=== PATIENT | female | born 1980 | race Caucasian/White ===

== ENCOUNTER 2018-07-12 15:35 | Observation (INO) | payer OTHER ==
[2018-07-12] MEDS ORDERED: ASPIRIN 325 MG TAB ONE (16:54)
[2018-07-12 17:24] LABS: Protime INR 1.05
[2018-07-12 17:33] LABS: Absolute Lymphocytes (CBC) 2.2 K/uL (0.7-4.9); Absolute Monocytes 0.4 K/uL (0.1-1.3); Absolute Neutrophil 4.4 K/uL (1.8-8.0); Basophils % 0.7 % (0-1.3); Eosinophils % 0.8 % (0-4.4); Hematocrit 46.8 % (36.0-45.0); Lymphocytes % 30.7 % (15.3-44.8); Monocytes % 6.3 % (3.3-12.3)
[2018-07-12 17:48] LABS: ALT/SGPT 20 U/L (12-78); AST/SGOT 24 U/L (15-37); Albumin 4.3 g/dL (3.4-5.0); Alkaline Phosphatase 52 U/L (45-117); BUN Blood Urea Nitrogen 9 mg/dL (7-18); Bicarbonate 27 mmol/L (21-32); Bilirubin Direct 0.2 mg/dL (0-0.2); Bilirubin Total 0.9 mg/dL (0.2-1.0); Glucose Level 71 mg/dL (74-106); Magnesium 2.2 mg/dL (1.8-2.4); NT PRO-BNP 34 pg/mL (<125); Potassium 4.1 mmol/L (3.5-5.1); Protein, Total 7.9 g/dL (6.4-8.2); Sodium Level 139 mmol/L (136-145); Troponin (Emerg Dept Use Only) < 0.02 ng/mL (0.0-0.045)
--- NOTE | 2018-07-12 18:06 | RAD REPORT ---
EXAM DESCRIPTION: RAD - Chest Single View - 07/12/2018 5:44 pm CLINICAL HISTORY: left eye blindness Chest pain. COMPARISON: CHEST PA AND LAT 2 VIEW dated 11/23/2013 FINDINGS: Portable technique limits examination quality. Small calcified granuloma seen in the right lung base. The lungs are otherwise clear. The heart is no rmal in size. Levoscoliosis of the upper thoracic spine is present. IMPRESSION: No acute intrathoracic process suspected.
--- NOTE | 2018-07-12 18:26 | RAD REPORT ---
EXAM DESCRIPTION: CT - Head Brain Wo Cont - 07/12/2018 6:16 pm CLINICAL HISTORY: VISUAL DISTURBANCES CVA/TIA, visual disturbances. COMPARISON: Neck Angio dated 07/12/2018; Head angio dated 07/12/2018 TECHNIQUE: All CT scans are performed using dose optimization technique as appropriate and may inclu de automated exposure control or mA/KV adjustment according to patient size. FINDINGS: No intracranial hemorrhage, hydrocephalus or extra-axial fluid collection.No areas of brai n edema or evidence of midline shift. The paranasal sinuses and mastoids are clear. The calvarium is intact. IMPRESSION: No acute intracranial abnormality.
--- NOTE | 2018-07-12 18:31 | RAD REPORT ---
EXAM DESCRIPTION: CT - Neck Angio - 07/12/2018 6:16 pm CLINICAL HISTORY: Left eye blindness TIA/CVA. COMPARISON: No comparisons TECHNIQUE: CT angiography of the neck vessels was performed with MIPs. All CT scans are performed using dose optimization technique as appropriate and may include automated exposure control or mA/KV adjustment according to patient size. FINDINGS: The aortic arch is incompletely visualized on the submitted images. Normal flow is seen in both subclavian arteries. No significant flow abnormality is seen of the common carotid bilaterally. No significant stenosis is identified involving the cervical segments of both internal carotid arteri es. Normal flow is seen within both vertebral arteries. Spondylosis is present at C5-6. IMPRESSION: No significant flow abnormality of the neck vessels is identified.
--- NOTE | 2018-07-12 18:36 | RAD REPORT ---
EXAM DESCRIPTION: CT - Head angio - 07/12/2018 6:16 pm CLINICAL HISTORY: left eye blindness TIA/CVA COMPARISON: Head Brain Wo Cont dated 07/12/2018 TECHNIQUE: CT angiography of the head was performed with MIPs. All CT scans are performed using dose optimization technique as appropriate and may include automated exposure control or mA/KV adjustment according to patient size. FINDINGS: No evidence of aneurysm is detected. No flow-limiting stenosis or vascular malformation id entified. Antegrade flow is seen in the vertebral arteries. The vertebral arteries are codominant. The visualized dural venous sinuses are patent. IMPRESSION: No significant flow abnormality is detected.
--- NOTE | 2018-07-12 18:52 | ER ---
Nurse's Notes [facility] Name: Alona Hein Age: 37 yrs Sex: Female : 1980 Arrival Date: 07/12/2018 Time: 15:40 Bed 28 Private MD: None, None Diagnosis: Amaurosis fugax-left eye Presentation: 07/12 15:43 Presenting complaint: Patient states: "for the last two morning when I wake up my aa5 vision on my left eye is completely black and it last for about 5 to 10 minutes and my vision comes back". Pt states "I just saw my eye doctor and he said to come here but he also said that my left eye looked okay". Pt reports slight headache. Transition of care: patient was not received from another setting of care. Onset of symptoms was June 2018. Risk Assessment: Do you want to hurt yourself or someone else? Patient reports no desire to harm self or others. Initial Sepsis Screen: Does the patient meet any 2 criteria? No. Patient's initial sepsis screen is negative. Does the patient have a suspected source of infection? No. Patient's initial sepsis screen is negative. Care prior to arrival: None. 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 - Social history:: Smoking status: Patient uses tobacco products, 3-5 cigarettes a day . - Ebola Screening: : No symptoms or risks identified at this time. Screenin:12 Abuse screen: Denies threats or abuse. Nutritional screening: No deficits noted. tl3 Tuberculosis screening: No symptoms or risk factors identified. Fall Risk None identified. Assessment: 16:08 General: Appears in no apparent distress. comfortable, slender, well groomed, well tl3 developed, well nourished, Behavior is calm, cooperative, appropriate for age. Pain: Complains of pain in left sided headache. 16:12 Neuro: No deficits noted. Level of Consciousness is awake, alert, obeys commands, tl3 Oriented to person, place, time, situation, Appropriate for age. Cardiovascular: Patient's skin is warm and dry. Respiratory: GI: No signs and/or symptoms were reported involving the gastrointestinal system. : No signs and/or symptoms were reported regarding the genitourinary system. EENT: No signs and/or symptoms were reported regarding the EENT system. Derm: No signs and/or symptoms reported regarding the dermatologic system. Musculoskeletal: No signs and/or symptoms reported regarding the musculoskeletal system. 17:00 Reassessment: Patient appears in no apparent distress at this time. Patient and/or sg family updated on plan of care and expected duration. Pain level reassessed. Patient is alert, oriented x 3, equal unlabored respirations, skin warm/dry/pink. report received from Amy MARTIN Patient denies pain at this time. Patient states feeling better. Cardiovascular: Patient's skin is warm and dry. Respiratory: Airway is patent Respiratory effort is even, unlabored, Respiratory pattern is regular, symmetrical. EENT: No signs and/or symptoms were reported regarding the EENT system. Derm: Skin is pink, warm \\T\\ dry. 18:00 Reassessment: Patient appears in no apparent distress at this time. Patient and/or sg family updated on plan of care and expected duration. Pain level reassessed. Patient is alert, oriented x 3, equal unlabored respirations, skin warm/dry/pink. Patient states feeling better. 19:10 Reassessment: Patient appears in no apparent distress at this time. Patient and/or sg family updated on plan of care and expected duration. Pain level reassessed. Patient is alert, oriented x 3, equal unlabored respirations, skin warm/dry/pink. Patient states feeling better. 20:04 Reassessment: Patient appears in no apparent distress at this time. Patient and/or sg family updated on plan of care and expected duration. Pain level reassessed. Patient is alert, oriented x 3, equal unlabored respirations, skin warm/dry/pink. pt family member bringing food for pt at this time Patient denies pain at this time. Patient states feeling better. 20:11 Reassessment: Patient appears in no apparent distress at this time. Patient and/or sg family updated on plan of care and expected duration. Pain level reassessed. Patient is alert, oriented x 3, equal unlabored respirations, skin warm/dry/pink. at bedside evaluating pt at this time, will continue to monitor. 22:54 Reassessment: Patient appears in no apparent distress at this time. No changes from tl3 previously documented assessment. Patient and/or family updated on plan of care and expected duration. Pain level reassessed. Patient is alert, oriented x 3, equal unlabored respirations, skin warm/dry/pink. Vital Signs: 15:42 BP 117 / 88; Pulse 75; Resp 16 S; Temp 98.5(TE); Pulse Ox 100% on R/A; Weight 70.76 kg aa5 (R); Height 5 ft. 7 in. (170.18 cm) (R); Pain 1/10; 17:20 BP 115 / 80; Pulse 77; Resp 17; Pulse Ox 100% on R/A; Pain 0/10; sg 19:00 BP 112 / 77; Pulse 72; Resp 16; Pulse Ox 100% on R/A; Pain 0/10; sg 15:42 Body Mass Index 24.43 (70.76 kg, 170.18 cm) aa5 ED Course: 15:40 Patient arrived in ED. mr 15:40 None, None is Private Physician. mr 15:43 Arm band placed on. aa5 15:44 Triage completed. aa5 15:47 Yobani Jackson, ELGIN is PHCP. pm1 15:47 Darwin Barros MD is Attending Physician. pm1 15:59 Amy Law, MARIO is Primary Nurse. tl3 16:06 Radiology exam delayed due to lab results not completed at this time. (BUN/Creatinine). sj 16:12 Patient has correct armband on for positive identification. Bed in low position. Call tl3 light in reach. Side rails up X 1. Pulse ox on. NIBP on. 16:12 No provider procedures requiring assistance completed. Patient did not have IV access tl3 during this emergency room visit. 16:18 EKG done, by social service technician. reviewed by Yobani Jackson NP. sm3 16:40 XRAY Chest (1 view) Sent. tl3 16:47 Radiology exam delayed due to lab results not completed at this time. (BUN/Creatinine). nj 17:00 Missed attempt(s): 22 gauge in right antecubital area. Bleeding controlled, band aid sg applied, catheter tip intact. Missed attempt(s): 22 gauge in right hand. Bleeding controlled, band aid applied, catheter tip intact. 17:17 Initial lab(s) drawn, by me, sent to lab. sg 17:19 Inserted saline lock: 22 gauge in left antecubital area, using aseptic technique. Blood sg collected. 17:46 XRAY Chest (1 view) In Process Unspecified. EDMS 18:19 CT Head Angio In Process Unspecified. EDMS 18:19 CT Neck Angio In Process Unspecified. EDMS 18:21 CT Head Brain wo Cont In Process Unspecified. EDMS 18:49 Nik Ojeda MD is Hospitalizing Provider. pm1 22:54 Patient admitted, IV remains in place. tl3 Administered Medications: 16:46 Drug: Aspirin 325 mg Route: PO; tl3 17:30 Follow up: Response: No adverse reaction sg Outcome: 18:51 Decision to Hospitalize by Provider. pm1 22:54 Admitted to Tele tl3 22:54 Admitted to Tele accompanied by tech, via wheelchair, with chart, Report called to Conor MARTIN 22:54 Condition: stable 22:54 Instructed on the need for admit. 22:55 Patient left the ED. tl3 Signatures: Dispatcher [employer] EDJay Baxter, RN RN MagallonPatricia mr Tucker, Dang Chapman, RN RN aa5 Yobani Jackson, MUSIC TYPOGRAPHER MUSIC TYPOGRAPHER pm1 Gato Naqvi Tammy, RN RN tl3 Fatou Dickerson 3 Corrections: (The following items were deleted from the chart) 15:45 15:42 70.76 kg Reported; Height 5 ft. 7 in. Reported; BMI: 24.4; aa5 aa5 15:45 15:43 Presenting complaint: Patient states: "for the last two morning when I wake up my aa5 vision on my left eye is completely black and it last for about 5 to 10 minutes and my vision comes back". Pt states "I just saw my eye doctor and he said to come here but he also said that my left eye looked okay" aa5
--- NOTE | 2018-07-12 18:52 | EDPHYS ---
Physician Documentation [facility] Name: Alona Hein Age: 37 yrs Sex: Female : 1980 Arrival Date: 07/12/2018 Time: 15:40 Bed 28 Private MD: None, None ED Physician Darwin Barros HPI: 07/12 16:06 This 37 yrs old Female presents to ER via Ambulatory with complaints of pm1 Vision Problem. 16:06 The patient is experiencing left eye blindness, to the left eye, caused by an unknown pm1 mechanism. Onset: The symptoms/episode began/occurred yesterday, at 05:30. Duration: the symptoms Lasted 5-10 minutes each morning at 0530 yesterday morning and this morning . Aggravated by nothing. Alleviated by nothing. Associated signs and symptoms: Pertinent positives: headache, Pertinent negatives: dizziness, ear ache, fever, runny nose. Patient wears glasses, wears soft contacts. Severity of symptoms: in the emergency department the symptoms have resolved. The patient has not experienced similar symptoms in the past. The patient has been recently seen by a physician: [facility]. Patient with onset of left eye blindness yesterday at 0530 that lasted for about 5 minutes then resolved. No issues with her vision. Occurred this AM at 0530 again and feels that it lasted longer about 10 minutes. 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 Sent to ER for further evaluation. Patient without any other focal weakness or deficits. 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 - Social history:: Smoking status: Patient uses tobacco products, 3-5 cigarettes a day . - Ebola Screening: : No symptoms or risks identified at this time. ROS: 16:06 Constitutional: Negative for fever, chills, and weight loss. pm1 16:06 ENT: Negative for injury, pain, and discharge, Neck: Negative for injury, pain, and swelling, Cardiovascular: Negative for chest pain, palpitations, and edema, Respiratory: Negative for shortness of breath, cough, wheezing, and pleuritic chest pain, Abdomen/GI: Negative for abdominal pain, nausea, vomiting, diarrhea, and constipation, Back: Negative for injury and pain, : Negative for injury, bleeding, discharge, and swelling, MS/Extremity: Negative for injury and deformity, Skin: Negative for injury, rash, and discoloration. 16:06 Eyes: Positive for vision loss, of the left eye, Negative for discharge, pain, photophobia, redness. 16:06 Neuro: Positive for headache, Negative for dizziness, numbness, tingling, weakness. Exam: 16:06 Constitutional: This is a well developed, well nourished patient who is awake, alert, pm1 and in no acute distress. Head/Face: Normocephalic, atraumatic. Eyes: Pupils equal round and reactive to light, extra-ocular motions intact. Lids and lashes normal. Conjunctiva and sclera are non-icteric and not injected. Cornea within normal limits. Periorbital areas with no swelling, redness, or edema. ENT: Nares patent. No nasal discharge, no septal abnormalities noted. Tympanic membranes are normal and external auditory canals are clear. Oropharynx with no redness, swelling, or masses, exudates, or evidence of obstruction, uvula midline. Mucous membranes moist. Neck: Trachea midline, no thyromegaly or masses palpated, and no cervical lymphadenopathy. Supple, full range of motion without nuchal rigidity, or vertebral point tenderness. No Meningismus. Chest/axilla: Normal chest wall appearance and motion. Nontender with no deformity. No lesions are appreciated. Cardiovascular: Regular rate and rhythm with a normal S1 and S2. No gallops, murmurs, or rubs. Normal PMI, no JVD. No pulse deficits. Respiratory: Lungs have equal breath sounds bilaterally, clear to auscultation and percussion. No rales, rhonchi or wheezes noted. No increased work of breathing, no retractions or nasal flaring. Abdomen/GI: Soft, non-tender, with normal bowel sounds. No distension or tympany. No guarding or rebound. No evidence of tenderness throughout. Back: No spinal tenderness. No costovertebral tenderness. Full range of motion. Skin: Warm, dry with normal turgor. Normal color with no rashes, no lesions, and no evidence of cellulitis. 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 Sensation intact. 16:06 Neuro: Orientation: is normal, Mentation: is normal, Motor: is normal, moves all fours, Gait: is steady, at a normal pace, without difficulty. Vital Signs: 15:42 BP 117 / 88; Pulse 75; Resp 16 S; Temp 98.5(TE); Pulse Ox 100% on R/A; Weight 70.76 kg aa5 (R); Height 5 ft. 7 in. (170.18 cm) (R); Pain 1/10; 17:20 BP 115 / 80; Pulse 77; Resp 17; Pulse Ox 100% on R/A; Pain 0/10; sg 19:00 BP 112 / 77; Pulse 72; Resp 16; Pulse Ox 100% on R/A; Pain 0/10; sg 15:42 Body Mass Index 24.43 (70.76 kg, 170.18 cm) aa5 MDM: 15:58 Patient medically screened. pm1 15:58 Data reviewed: vital signs. Data interpreted: Pulse oximetry: on room air is 100 %. pm1 Interpretation: normal. 18:48 Counseling: I had a detailed discussion with the patient and/or guardian regarding: the pm1 historical points, exam findings, and any diagnostic results supporting the discharge/admit diagnosis, lab results, radiology results, the need for further work-up and treatment in the hospital. 07/12 16:01 Order name: Basic Metabolic Panel; Complete Time: 18:43 pm1 07/12 16:01 Order name: CBC with Diff; Complete Time: 17:42 pm1 07/12 16:01 Order name: LFT's; Complete Time: 18:43 pm1 07/12 16:01 Order name: Magnesium; Complete Time: 18:43 pm1 07/12 16:01 Order name: NT PRO-BNP; Complete Time: 18:43 pm1 07/12 16:01 Order name: PT-INR; Complete Time: 17:42 pm1 07/12 16:01 Order name: CT Head Angio; Complete Time: 18:43 pm1 07/12 16:01 Order name: CT Neck Angio; Complete Time: 18:43 pm1 07/12 16:01 Order name: Troponin (emerg Dept Use Only); Complete Time: 18:43 pm1 07/12 16:01 Order name: XRAY Chest (1 view); Complete Time: 18:43 pm1 07/12 16:07 Order name: CT Head Brain wo Cont; Complete Time: 18:43 pm1 07/12 17:27 Order name: Urine Dipstick--Ancillary (enter results); Complete Time: 22:20 eb 07/12 17:27 Order name: Urine --Ancillary (enter results); Complete Time: 22:20 eb 07/12 16:01 Order name: EKG; Complete Time: 16:03 pm1 07/12 16:01 Order name: Cardiac monitoring; Complete Time: 16:40 pm1 07/12 16:01 Order name: EKG - Nurse/Tech; Complete Time: 16:41 pm1 07/12 16:01 Order name: IV Saline Lock; Complete Time: 19:03 pm1 07/12 16:01 Order name: Labs collected and sent; Complete Time: 19:04 pm1 07/12 16:01 Order name: O2 Per Protocol; Complete Time: 17:12 pm1 07/12 16:01 Order name: O2 Sat Monitoring; Complete Time: 17:12 pm1 Administered Medications: 16:46 Drug: Aspirin 325 mg Route: PO; tl3 17:30 Follow up: Response: No adverse reaction sg Disposition: 07/12/18 18:51 Hospitalization ordered by Nik Ojeda for Observation. Preliminary diagnosis is Amaurosis fugax - left eye. - Bed requested for Telemetry/MedSurg (observation). - Status is Observation. tl3 - Condition is Stable. - Problem is new. - Symptoms are resolved. UTI on Admission? No Signatures: Dispatcher [employer] EDMS Yennifer Gonzalez RN RN Dang Bahena RN RN aa5 Yobani Jackson, ELGIN CRYSTAL CALIBRATOR pm1 Amy Law RN RN tl3 Jay Azar RN sg Corrections: (The following items were deleted from the chart) 20:34 18:51 Hospitalization Ordered by Nik Ojeda MD for Observation. Preliminary diagnosis is Amaurosis fugax - left eye. Bed requested for Telemetry/MedSurg (observation). Status is Observation. Condition is Stable. Problem is new. Symptoms are resolved. UTI on Admission? No. pm1 22:55 20:34 07/12/2018 18:51 Hospitalization Ordered by Nik Ojeda MD for Observation. tl3 Preliminary diagnosis is Amaurosis fugax - left eye. Bed requested for Telemetry/MedSurg (observation). Status is Observation. Condition is Stable. Problem is new. Symptoms are resolved. UTI on Admission? No. fc
[2018-07-12 19:58] LABS: Urine Blood NEGATIVE (NEG); Urine Glucose NEGATIVE (NEG); Urine Protein NEGATIVE (NEG); Urine pH 5.5 (5.0-7.0)
--- NOTE | 2018-07-12 20:31 | P.HP ---
Certification for Inpatient Patient admitted to: Observation With expected LOS: <2 Midnights Practitioner: I am a practitioner with admitting privileges, knowledge of patient current condition, hospital course, and medical plan of care. Services: Services provided to patient in accordance with Admission requirements found in Title 42 Section 412.3 of the Code of Federal Regulations Patient History Date of Service: 07/12/18 Reason for admission: amaurosis fugax History of Present Illness: Ms Hein is a 37 years old woman with pretty benign past medical history, who came to ED complaining of transitory loss of vision of her left kathia. The first episode was yesterday night, lasting for 5 minutes, she states that she had black out on her left eye. She denied any numbness, tingling on weakness associated with. This morning, she had a similar episode, but last longer, about 10 minutes. 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 At my encounter, the patient was asymptomatic. VS within normal limits. Allergies meperidine [From Demerol] Allergy (Verified 07/12/18 20:09) Hives/Rash Home medications list reviewed: Yes - Past Medical/Surgical History Past Medical History: Reviewed- Non-Contributory Past Surgical History: Reviewed- Non-Contributory - Family History Family History: Reviewed- Non-Contributory - Social History Smoking Status: Current every day smoker Counseled patient to stop smoking for: less than 10 minutes Alcohol use: Yes CD- Drugs: No Place of Residence: Home Review of Systems 10-point ROS is otherwise unremarkable Physical Examination - Physical Exam General: Alert, In no apparent distress HEENT: Atraumatic, PERRLA, Mucous membr. moist/pink, EOMI, Sclerae nonicteric Neck: Supple, 2+ carotid pulse no bruit, No LAD, Without JVD or thyroid abnormality Respiratory: Clear to auscultation bilaterally, Normal air movement Cardiovascular: Regular rate/rhythm, Normal S1 S2 Gastrointestinal: Normal bowel sounds, No tenderness Musculoskeletal: No tenderness Integumentary: No rashes Neurological: Normal gait, Normal speech, Normal strength at 5/5 x4 extr, Normal tone, Normal affect Lymphatics: No axilla or inguinal lymphadenopathy - Studies Laboratory Data (last 24 hrs) 07/12/18 17:18: WBC 7.1, Hgb 15.6 H, Hct 46.8 H, Plt Count 222 07/12/18 17:00: PT 12.4, INR 1.05 07/12/18 17:00: Sodium 139, Potassium 4.1, BUN 9, Creatinine 0.63, Glucose 71 L , Magnesium 2.2, Total Bilirubin 0.9, AST 24, ALT 20, Alkaline Phosphatase 52 Assessment and Plan - Problems (Diagnosis) (1) Amaurosis fugax of left eye Current Visit: Yes Status: Acute - Plan Will admit the patient under observation for neurologist evaluation. In the meantime will order CRP and ESR, since differential diagnosis include vasculits. MRI brain, ECHO, lipid panel. Start ASA and statins. - Advance Directives Does patient have a Living Will: No Does patient have a Durable POA for Healthcare: No - Code Status/Comfort Care Code Status Assessed: Yes Code Status: Full Code
--- NOTE | 2018-07-12 21:37 | EKG ---
Test Date: 2018-07-12 Test Time: 16:10:01 Concrete Sculptor: CHAN MEASUREMENT RESULTS: Intervals: Rate: 62 CA: 134 QRSD: 82 QT: 406 QTc: 412 [place]: P: -28 CA: 134 QRS: 22 T: 41 INTERPRETIVE STATEMENTS: Normal sinus rhythm Low voltage QRS Borderline ECG Compared to ECG 11/23/2013 21:55:06 Low QRS voltage now present Myocardial infarct finding no longer present Electronically Signed On 07-12-18 21:35:21 RETAIL COVERAGE MERCHANDISER by Chepe Chaparro
[2018-07-12 22:45] VITALS: BMI 25.0
[2018-07-12] MEDS ORDERED: ONDANSETRON 4 MG/2 ML VIAL IV PRN (22:48)
[2018-07-12] MEDS ORDERED: ATORVASTATIN 80 MG TAB PO SCH (22:48)
[2018-07-12] MEDS ORDERED: ACETAMINOPHEN 500 MG TAB PO PRN (22:48)
[2018-07-12] MEDS ORDERED: MELATONIN 3 MG TABLET PO ONE (23:10)
[2018-07-12 23:29] VITALS: O2SAT 100
[2018-07-13] MEDS ORDERED: INFLUENZA VACCINE (for 3y+) 0.5 ML DOSE IMVAC ONE (08:00)
--- NOTE | 2018-07-13 08:36 | RAD REPORT ---
EXAM DESCRIPTION: MRI - Brain W/Wo Cont - 07/13/2018 8:19 am CLINICAL HISTORY: Left eye vision loss COMPARISON: CT head July 12 TECHNIQUE: Sagittal and axial T1-weighted images were obtained. Axial PD/heavily T2-weighted and T2- FLAIR images were obtained along with axial DWI/ADC mapping sequences. Coronal heavily T2 weighted s equence obtained. Axial and coronal post-contrast T1-weighted images were also obtained. A 15 ml Mul tihance contrast following utilized. FINDINGS: No intracranial hemorrhage, mass or acute infarction. There is no edema or shift of midli ne structures. No extra-axial fluid collections. Rich-matter/white matter junction is preserved. Sig nal voids are seen as a normal finding in the major intracranial vessels. No suspicion for cavernous sinus thrombosis or venous sinus thrombosis. No globe signal abnormality seen. Optic nerves and extraocular muscles have a normal appearance. Orbi devon fat is unremarkable. No sella or supra sella mass identifiable. Cerebellar tonsils extend 2 mm be low the foramen magnum. Post-contrast images show normal enhancement. No dural thickening. Mastoid air cells and paranasal sinuses are clear. IMPRESSION: Negative contrast enhanced MRI of the Brain.
[2018-07-13] MEDS ORDERED: ENOXAPARIN 40 MG/0.4 ML SQ SCH (09:00)
[2018-07-13] MEDS ORDERED: ASPIRIN 81 MG CHEWABLE TABLET PO SCH (09:00)
[2018-07-13 12:18] VITALS: BP 103/65; TEMP 98.6
--- NOTE | 2018-07-13 13:35 | P.DS ---
Admission Date: 07/12/18 Discharge Date: 07/13/18 Primary Care Provider: Dr. Yee Disposition: ROUTINE DISCHARGE Discharge Condition: GOOD Reason for Admission: amaurosis fugax Consultations: Neurology-Dr. Robertson Procedures: MRI: COMPARISON: CT head July 12 TECHNIQUE: Sagittal and axial T1-weighted images were obtained. Axial PD/ heavily T2-weighted and T2-FLAIR images were obtained along with axial DWI/ADC mapping sequences. Coronal heavily T2 weighted sequence obtained. Axial and coronal post-contrast T1-weighted images were also obtained. A 15 ml Multihance contrast following utilized. FINDINGS: No intracranial hemorrhage, mass or acute infarction. There is no edema or shift of midline structures. No extra-axial fluid collections. Rich- matter/white matter junction is preserved. Signal voids are seen as a normal finding in the major intracranial vessels. No suspicion for cavernous sinus thrombosis or venous sinus thrombosis. No globe signal abnormality seen. Optic nerves and extraocular muscles have a normal appearance. Orbital fat is unremarkable. No sella or supra sella mass identifiable. Cerebellar tonsils extend 2 mm below the foramen magnum. Post-contrast images show normal enhancement. No dural thickening. Mastoid air cells and paranasal sinuses are clear. IMPRESSION: Negative contrast enhanced MRI of the Brain. CT Head: COMPARISON: Neck Angio dated 07/12/2018; Head angio dated 07/12/2018 TECHNIQUE: All CT scans are performed using dose optimization technique as appropriate and may include automated exposure control or mA/KV adjustment according to patient size. FINDINGS: No intracranial hemorrhage, hydrocephalus or extra-axial fluid collection.No areas of brain edema or evidence of midline shift. The paranasal sinuses and mastoids are clear. The calvarium is intact. IMPRESSION: No acute intracranial abnormality CTA: COMPARISON: No comparisons TECHNIQUE: CT angiography of the neck vessels was performed with MIPs. All CT scans are performed using dose optimization technique as appropriate and may include automated exposure control or mA/KV adjustment according to patient size. FINDINGS: The aortic arch is incompletely visualized on the submitted images. Normal flow is seen in both subclavian arteries. No significant flow abnormality is seen of the common carotid bilaterally. No significant stenosis is identified involving the cervical segments of both internal carotid arteries. Normal flow is seen within both vertebral arteries. Spondylosis is present at C5-6. IMPRESSION: No significant flow abnormality of the neck vessels is identified. Carotid doppler: obtained Medical Problem List: Amaurosis fugax of left eye History of headaches Brief History of Present Illness: 37-year-old female came into the emergency room with transitory loss of vision to the left eye. 1st episode was 2 days ago lasting about 5 min. She denied any numbness, tingling, chest pain or shortness of breath. Then yesterday she had a similar episode about 10 min. 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 Exam was normal. She was referred to the ED for further evaluation. Patient asymptomatic in the emergency room. Patient was observed overnight. Hospital Course: Patient presented with transient vision loss to the left eye x2. Upon presentation to the ER she was asymptomatic. MRI of brain, CT of the head, CT angiogram of the neck and head unremarkable. Lab unremarkable. Patient was monitored overnight. Neurology evaluated patient. No further intervention required. Recommend to follow up with neurology in 1-2 weeks to further address. Neurology recommends to start aspirin 81 mg daily and folic acid 1 mg daily. Patient may require further lab to be ordered by neurology as an outpatient.. Vital Signs/Physical Exam: Temp Pulse Resp BP Pulse Ox 98.6 F 65 18 103/65 99 07/13/18 12:00 07/13/18 12:00 07/13/18 12:00 07/13/18 12:00 07/13/18 12:00 General: Alert, In no apparent distress, Oriented x3, Cooperative HEENT: Atraumatic, Normocephalic, PERRLA, Mucous membr. moist/pink, EOMI Neck: Supple Respiratory: Clear to auscultation bilaterally, Normal air movement Cardiovascular: Normal pulses, Regular rate/rhythm Gastrointestinal: Normal bowel sounds, Soft and benign, Non-distended, No tenderness, No masses, No rebound, No guarding Musculoskeletal: No erythema, No tenderness, No warmth Integumentary: No tenderness/swelling, No erythema, No warmth, No cyanosis Neurological: Normal speech, Normal strength at 5/5 x4 extr, Normal tone, Normal affect Laboratory Data at Discharge: WBC 7.1 K/uL (4.3-10.9) 07/12/18 17:18 Hgb 15.6 g/dL (12.0-15.0) H 07/12/18 17:18 Hct 46.8 % (36.0-45.0) H 07/12/18 17:18 Plt Count 222 K/uL (152-406) 07/12/18 17:18 PT 12.4 SECONDS (9.5-12.5) 07/12/18 17:00 INR 1.05 07/12/18 17:00 Sodium 139 mmol/L (136-145) 07/12/18 17:00 Potassium 4.1 mmol/L (3.5-5.1) 07/12/18 17:00 BUN 9 mg/dL (7-18) 07/12/18 17:00 Creatinine 0.63 mg/dL (0.55-1.3) 07/12/18 17:00 Glucose 71 mg/dL (74-106) L 07/12/18 17:00 Magnesium 2.2 mg/dL (1.8-2.4) 07/12/18 17:00 Total Bilirubin 0.9 mg/dL (0.2-1.0) 07/12/18 17:00 AST 24 U/L (15-37) 07/12/18 17:00 ALT 20 U/L (12-78) 07/12/18 17:00 Alkaline Phosphatase 52 U/L (45-117) 07/12/18 17:00 Triglycerides 44 mg/dL (<150) 07/13/18 05:20 Cholesterol 127 mg/dL (<200) 07/13/18 05:20 HDL Cholesterol 60 mg/dL (40-60) 07/13/18 05:20 Cholesterol/HDL Ratio 2.12 07/13/18 05:20 Home Medications: Aspirin Chewable [Aspirin Chewable*] 81 mg PO DAILY #30 tab.chew 07/13/18 Folic Acid 1 mg PO DAILY #30 tablet 07/13/18 Hydrocodone 5/APAP 325 [[place] 5/325*] 1 tab PO Q6HR PRN 07/13/18 Melatonin 10 mg PO BEDTIME 07/13/18 New Medications: Aspirin Chewable [Aspirin Chewable*] 81 mg PO DAILY #30 tab.chew Folic Acid 1 mg PO DAILY #30 tablet Patient Discharge Instructions: 1. Recommend to follow up with her PCP in 1 week to follow up this hospitalization. 2. Patient presented with transient vision loss to the left eye x2. Upon presentation to the ER she was asymptomatic. MRI of brain, CT of the head, CT angiogram of the neck and head unremarkable. Lab unremarkable. Patient was monitored overnight. Neurology evaluated patient. No further intervention required. Recommend to follow up with neurology in 1-2 weeks to further address. Neurology recommends to start aspirin 81 mg daily and folic acid 1 mg daily. Patient may require further lab to be ordered by neurology as an outpatient.. Diet: AHA Activity: Ad ambika Time spent managing pt's care (in minutes): 55
--- NOTE | 2018-07-13 14:55 | ECHO ---
HEIGHT: 5 ft 5 in WEIGHT: 150 lb 6.4 oz DATE OF STUDY: 07/13/[address]: Nik Rojas MD 2-DIMENSIONAL: YES M.MODE: YES DOPPLER: YES COLOR FLOW: YES TDS: PORTABLE: DEFINITY: BUBBLE STUDY: DIAGNOSIS: AMAUROSIS FUGAX CARDIAC HISTORY: CATHERIZATION: NO SURGERY: NO PROSTHETIC VALVE: NO PACEMAKER: NO MEASUREMENTS (cm) DIASTOLIC (NORMALS) SYSTOLIC (NORMALS) IVSd 0.6 (0.6-1.2) LA Diam 2.8 (1.9-4.0) LVEF 68% LVIDd 4.6 (3.5-5.7) LVIDs 2.9 (2.0-3.5) %FS 38% LVPWd 0.7 (0.6-1.2) Ao Diam 2.5 (2.0-3.7) 2 DIMENSIONAL ASSESSMENT: RIGHT ATRIUM: NORMAL LEFT ATRIUM: NORMAL RIGHT VENTRICLE: NORMAL LEFT VENTRICLE: NORMAL TRICUSPID VALVE: NORMAL MITRAL VALVE: NORMAL PULMONIC VALVE: NORMAL AORTIC VALVE: NORMAL PERICARDIAL EFFUSION: NONE AORTIC ROOT: NORMAL LEFT VENTRICULAR WALL MOTION: NORMAL DOPPLER/COLOR FLOW: MILD MITRAL REGURGITATION. COMMENTS: NORMAL TWO DIMENSIONAL ECHOCARDIOGRAM. MILD MITRAL REGURGITATION. TECHNOLOGIST: ALMAS CARVALHO
--- NOTE | 2018-07-13 18:03 | RAD REPORT ---
EXAM DESCRIPTION: USCarotid Artery Bilateral07/13/2018 2:53 pm CLINICAL HISTORY: Vision loss COMPARISON: None FINDINGS: The velocity of the right internal carotid artery equals 106 cm/sec. The right ICA/CCA rat io 1 The velocity of the left internal carotid artery equals 120 cm/sec. The left ICA/CCA ratio 1.1 Plaque is not visualized within the carotid arteries. The vertebral arteries demonstrate antegrade flow IMPRESSION: Unremarkable exam NASCET criteria used. Mild 0-49% stenosis Moderate 50-69% stenosis Severe 70-99% stenosis
--- NOTE | 2018-07-19 13:41 | CON ---
Reason For Consultation: Consultation because of transient ischemic attack, amaurosis fug ax. History Of Present Illness: Ms. Hein is a 37-year-old right-handed patient, who denies any significant past medical history, but she does smoke at least 3 to 5 cigarettes daily, but does r eport that she was doing well when last night she and she woke up and noted no vision in t he left eye. Over the next 5 to 10 minutes, her vision gradually restored back to normal. She came into [facility]. Workup included a head CT scan, which was unremarkable for acute ischemic or hemorrhagic stroke. CT angiogram of the head and neck identified no significant blood vessel neeta nal abnormalities in both head and neck region. Subsequent brain MRI stroke protocol done today. It was negative for any acute ischemic or hemorrhagic change or any other abnormalities. Electrocardio gram showed a normal sinus rhythm with low-voltage QRS, borderline study. Chest x-ray shows no acute cardiothoracic processes. She was given an aspirin in the emergency room at 325 mg and received inf luenza vaccine and was given Lovenox, started on high-dose statin, and continued on aspirin 81 mg praveen ly. Since hospitalization, no further events noted. Past Medical History: Please note she is missing several fingers on left hand very remote . Otherwise, history. She has chronic low back pain and did receive injections in the lo wer back and did report some headaches following the low back injections. Family History: Grandmother had transient ischemic attacks. Allergies: MEPERIDINE. Review of Systems: She does report some mild lower back pain with radiation, wrapping around in the L4 distribution on t he left more than right. Also, some pain after sitting a while in the lower back area, that does see m to improve as she ambulates. Physical Examination: HEENT: Otherwise, she is normocephalic and atraumatic. Sclerae anicteric. Oropharynx is pink and m oist. Neck: Supple. Chest: Clear. Heart: Regular. Extremities: Show no edema or cyanosis. She is missing her third through fifth fingers on the left hand. Index finger and thumb are intact. Neurologic: She is alert and oriented to situation, place, and person. Follows commands appropriate ly. Cranial nerves 2 through 12 are intact. Motor examination, fully strong in upper and lower extr emities, proximally and distally, at 5/5. Sensory exam is intact to light touch, pinprick, and tempe rature in arms and legs with no loss detected. 2+ reflexes at biceps, triceps, brachioradialis, james llae, and heels. Coordination is intact in upper and lower extremities. Gait good stance, right arm swing. Assessment: Ms. Hein is a 37-year-old patient, who smokes cigarettes and potentially had a transi ent ischemic attack consisting of amaurosis fugax, left eye. She has a family history of transient i schemic attacks in her grandmother, but immediate family member. She was not taking aspir in daily. She does report having 2 children and has been somewhat stressed. Her lives in [facility] and the children spend time between her and her . Once discharged, the patient should: 1.Complete a stroke in the young workup with blood work for that including Factor V Leiden, anticard iolipin antibody, antiphospholipid antibody, protein C, and protein S. 2.Aspirin 81 mg daily. 3.Folate 1 mg daily. 4.An echocardiogram should be done to rule out a [id number] shunt possibility for her transient i schemic attack. 5.The patient was strongly advised to stop smoking. 6.Folic acid 1 mg daily. 7.Discharge home. 8.Follow up in Dr. Robertson's clinic. Please note that she may benefit from a carotid Doppler study of the neck. CHELSY/DRE Voice ID: [id number] Report ID: [id number]
== END 2018-07-13 15:44 | disposition home or self-care (01) ==
LOC: ER 15:35 → ERHOLD 20:23 → 4TH 22:21
PROVIDERS: ADMIT Internal Medicine; ATTEND Internal Medicine
DX: G45.3 Amaurosis fugax (principal); F17.210 Nicotine dependence, cigarettes, uncomplicated; Z23 Encounter for immunization
CPT/HCPCS: 36415; 70450; 70496; 70498; 70553; 71045; 80048; 80061; 80076; 81003; 81025; 83735; 83880; 84484; 85025; 85610; 85652; 86140; 93005; 93306; 93880; 99285; A9577; G0008; G0378; J1650; Q2035; Q9967

== ENCOUNTER 2018-09-03 09:25 | Day surgery (SDC) | payer OTHER ==
[2018-09-03] MEDS ORDERED: PHENYLEPHRINE 10% OPTH 5ML ONE (09:55)
[2018-09-03] MEDS ORDERED: CYCLOPENTOLATE 1% OPTH 2 ML ONE (09:55)
[2018-09-03] MEDS ORDERED: NA CHLORIDE 0.9% 500 ML ONE (09:55)
[2018-09-03] MEDS ORDERED: NS 0.9% VIAL 10 ML ONE (09:56)
[2018-09-03] MEDS ORDERED: PHENYLEPHRINE 10% OPTH 5ML OPTH ONE ×2 (10:05→10:10)
[2018-09-03] MEDS ORDERED: CYCLOPENTOLATE 1% OPTH 2 ML OPTH ONE ×2 (10:05→10:10)
[2018-09-03] MEDS: TETRACAINE HCL 0.5% 4ML OPTH ONE ×2 (10:10→11:46)
[2018-09-03] MEDS: LIDOCAINE 2% MPF 5 ML VIAL ONE ×2 (10:11→11:47)
[2018-09-03] MEDS: BUPIVACAINE 0.25% PF 10 ML VIAL ONE ×2 (10:11→11:47)
[2018-09-03 10:36] VITALS: O2SAT 100
[2018-09-03] MEDS: DUOVISC 1 KIT OPTH ONE ×2 (11:09→12:00)
[2018-09-03] MEDS: BALANCED SALT IRRIG PLAIN 500 ML BTL IRR ONE ×2 (11:09→12:00)
[2018-09-03] MEDS: EPINEPHRINE/PF 1 MG/ML AMP ONE ×2 (11:10→12:00)
[2018-09-03] MEDS: MOXIFLOXACIN HCL 10 DROPS/ML **OR USE OPTH ONE ×3 (11:10→12:18)
[2018-09-03] MEDS ORDERED: LIDOCAINE 2% MPF 5 ML VIAL ONE (11:31)
[2018-09-03] MEDS ORDERED: PROPOFOL 200 MG/20 ML VIAL IV ONE (11:31)
--- NOTE | 2018-09-03 12:27 | P.BOP ---
Preoperative diagnosis: Posterior subcapsular cataract OS Postoperative diagnosis: Same Primary procedure: Phacoemulsification with IOL OS Estimated blood loss: None Anesthesia: Local (Subtenon's infusion with anesthesia for cataract surgery) Complications: None Implants: [id number] +19.0 Transferred to: Other (Day surgery) Condition: Good
[2018-09-03 12:59] VITALS: BP 107/85; TEMP 99.1
--- NOTE | 2018-09-03 22:57 | OP ---
Date of Procedure: 09/03/2018 Surgeon: Andressa Mcfarland MD Anesthesiologist: Pipo Powell CRNA and Fliippo Jara M.D. Preoperative Diagnosis: Posterior subcapsular cataract, OS (left eye). Operation Performed: Phacoemulsification with intraocular lens implant, left eye. Anesthesia: Per cataract surgery. Complications: None. Description Of Procedure: In day surgery, the patient was prepped with Betadine and draped. A conjunctival incision was made in the inferior nasal quadrant with Stephanie scissors. A sub-Tenon block consisting of a 1:1 mixture of 2% Xylocaine and 0.25% bupivacaine was placed through the conjunctival incision with a blunt cannula. A Honan balloon was placed over the eye and the patient was transferred to the operating room. In the operating room the patient was prepped and draped in the usual sterile fashion for ophthalmic surgery. A lid speculum was placed in the left eye. Two paracentesis sites were made superiorly and inferiorly in the limbal cornea. Viscoat was placed in the anterior chamber and a crescent blade was used to make a corneal groove and tunnel, and a keratome was used to enter the anterior chamber. Provisc was placed in the anterior chamber and a 360 degree capsulotomy was performed with a cystitome. The lens was hydrodissected with BSS and rotated freely. The lens was removed with a stop and chop technique. A 0.44 phaco CDE was used to remove the lens. Residual cortex was removed with the irrigation and aspiration. Provisc was placed in the capsular bag. A ZCB00 +19.0 lens was placed in the capsular bag without complications. Irrigation and aspiration were used to remove residual viscoelastic. The paracentesis sites were hydrated with BSS. The wound and paracentesis sites were inspected and found to be watertight. Vigamox 0.07 cc was placed intracamerally at the end of the procedure. The eye was irrigated with balanced salt solution. The eye was patched with a soft cotton patch and Franz metal shield. The patient was returned to day surgery in good condition. Discharge Instructions: Ms. Hein is discharged to home in good condition and is to follow up with Dr. Mcfarland in the morning. JANKI/DRE Voice ID: [id number] Report ID: [id number] MTDD
== END 2018-09-03 12:50 | disposition home or self-care (01) ==
LOC: OR 09:25
PROVIDERS: ATTEND Ophthalmology Retina Specialist
PROC: 08RK3JZ Replacement of Left Lens with Synthetic Substitute, Percutaneous Approach (ICD-10-PCS; principal; 2018-09-03 10:30)
DX: H25.042 Posterior subcapsular polar age-related cataract, left eye (principal); Z79.82 Long term (current) use of aspirin; Z87.891 Personal history of nicotine dependence
CPT/HCPCS: 81025; J0171; J2704

== ENCOUNTER 2019-12-14 22:37 | Emergency (ER) | payer OTHER ==
--- OUTSIDE RECORDS SUMMARY | 2019-12-14 22:39 | XMS REPORT | Continuity of Care Document ---
:1980 Author Organization [facility] t Address [address] [place] [address] Care Team Providers Name Role Phone Ronak Sugey FRITZ Attending Clinician Kehinde Yee MD Attending Clinician Problems This patient has no known problems. Allergies, Adverse Reactions, Alerts This patient has no known allergies or adverse reactions. Medications This patient has no known medications. Procedures This patient has no known procedures. Encounters Start End Encounter Admission Attending Care Care Encounter Source Date/Time Date/Time Type Type Clinicians Facility Department ID 2019-11-11 2019-11-11 [facility] Delilah Simons [facility] [id number] 10:15:00 23:59:00 Encounter Y SPECIALTY [id number] CARE [id number] CENTER AT [id number] JUAN [address] [place] [address] 2019-11-11 2019-11-11 [facility] [id number] 09:46:05 13:30:50 Care Y SPECIALTY [id number] CARE [id number] CENTER AT [id number] [address] 2019-08-15 2019-08-15 Telephone ERIN Yee [id number] 00:00:00 00:00:00 [facility] [id number] Kehinde Marie [id number] Professio [id number] [address] One Results This patient has no known results.
--- OUTSIDE RECORDS SUMMARY | 2019-12-14 22:39 | XMS REPORT | Summary of Care ---
:1980 Author Organization [facility] Address [address] [place] [address] Care Team Providers Name Role Phone Kwadwo Yee MD Primary Care Provider [phone] Reason for Referral Radiology Services ([facility]) Status Reason Specialty Diagnoses / Referred By Referred To Procedures Contact Contact New Request Diagnostic Diagnoses Injury of left foot, initial encounter Delilah Simons, Radiology Procedures XR ANKLE 3+ VW LEFT THIRD HELPER [address] [place] [address] Radiology Services ([facility]) Status Reason Specialty Diagnoses / Referred By Referred To Procedures Contact Contact New Request Diagnostic Diagnoses Injury of left foot, initial encounter Delilah Simons, Radiology Procedures XR FOOT 3+ VW LEFT THIRD HELPER [address] [place] [address] Reason for Visit Reason Comments Foot Injury left foot Encounter Details Date Type Department Care Team Description 11/11/2019 Urgent Care [facility] Urgent Unknown, Attending Inj ury of left foot, [facility] Delilah Simons, THIRD HELPER [address] [place] [address] [phone] initial encounter [place] (Primary Dx) [address] [place] [phone] Allergies Active Allergy Reactions Severity Noted Date Comments Morphine Itching 03/18/2015 documented as of this encounter (statuses as of 11/11/2019) Medications Medication Sig Dispensed Refills Start Date End Date Status ibuprofen 200 mg Take 400 mg by 0 Active tablet mouth every 6 (six) hours as needed (pain back). aspirin 81 mg chewable ENGINEER OF SYSTEM DEVELOPMENT 1 T PO D 0 07/13/2018 Active tablet foLIC acid 1 mg tablet TK 1 T PO D 0 07/13/2018 Active documented as of this encounter (statuses as of 11/11/2019) Active Problems Problem Noted Date Hypoglycemia 04/20/2015 Depression 03/18/2015 documented as of this encounter (statuses as of 11/11/2019) Social History Tobacco Use Types Packs/Day Years Used Date Former Smoker Cigarettes 0.25 20 Quit: 03/04/20 15 Smokeless Tobacco: Never Used Alcohol Use Drinks/Week oz/Week Comments Yes 3 Cans of beer 3.0 Occasional Drinker 0 Standard drinks or equivalent Sex Assigned at Date Recorded Not on file Job Start Date Occupation Industry Not on file Not on file Not on file Travel History Travel Start Travel End No recent travel history available. COVID-19 Exposure Response Date Recorded In the last month, have you been in contact with No / Unsure 11/11/2019 10:02 AM CDT someone who was confirmed or suspected to have Coronavirus / COVID-19? documented as of this encounter Last Filed Vital Signs Vital Sign Reading Time Taken Comments Blood Pressure 124/84 11/11/2019 10:03 AM CDT Pulse 61 11/11/2019 10:03 AM CDT Temperature 36.8 C (98.2 F) 11/11/2019 10:03 AM CDT Respiratory Rate 18 11/11/2019 10:03 AM CDT Oxygen Saturation 97% 11/11/2019 10:03 AM CDT Inhaled Oxygen Concentration - - Weight 79.7 kg (175 lb 9.6 oz) 11/11/2019 10:03 AM CDT Height 167.6 cm (5' 6") 11/11/2019 10:03 AM CDT Body Mass Index 28.34 11/11/2019 10:03 AM CDT documented in this encounter Patient Instructions Patient InstructionsDelilah Simons, LAM - 11/11/2019 10:00 AM CDT Patient Education RICE RICE stands for rest, ice, compression, and elevation. Doing these things helps limit pain and swelling after an injury. RICE also helps injuries heal faster. Use RICE for sprains, strains, and severe bruises or bumps. Follow the tips on this handout and begin RICE as soon as possible after an injury. Rest Pain is your bodys way of telling you to rest an injured area. Whether you have hurt an elbow, hand, foot, or knee, limiting its use will prevent further injury and help you heal. Ice Applying ice right after an injury helps prevent swelling and reduce pain. Dont place ice directly on your skin. Wrap a cold pack or bag of ice in a thin cloth. Place it over the injured area. Ice for 10minutes every 3hours. Dont ice for more than 20minutes at a time. Compression Putting pressure (compression) on an injury helps prevent swelling and provides support. Wrap the injured area firmly with an elastic bandage. If your hand or foot tingles, becomes discolored, or feels cold to the touch, the bandage may be too tight. Rewrap it more loosely. If your bandage becomes too loose, rewrap it. Do not wear an elastic bandage overnight. Elevation Keeping an injury elevated helps reduce swelling, pain, and throbbing. Elevation is most effectivewhen the injury is kept elevated higher than the heart. Call your healthcare provider if you notice any of the following: Fingers or toes feel numb, are cold to the touch, or change color. Skin looks shiny or tight. Pain, swelling, or bruising worsens and is not improved with elevation. [employer] last reviewed this educational content on 09/19/201719992581-2490 [employer]. [address] [place] [address]. All rights reserved. This information is not intended as a substitute for professional medical care. Always follow your healthcare professional's instructions. documented in this encounter Progress Notes Delilah Simons FNP - 11/11/2019 10:00 AM CDT SUBJECTIVE CC: Foot Injury (left foot) PCP : Kwadwo Yee HPI: Alona Hein is a 39 year old female who comes today with complaints of left foot pain post fall from stairs 2 days ago. Patient was walking down the stairs of a restaurant when she missed the last 2 steps and fell forwards. Pain located on the outer aspect of the foot, slight numbness and tingling to the 4tha nd 5th toes. OTC:ibuprofen prior to arrival in clinic. Pain with ambulation on balls of the foot and plantarflexion. ASSOCIATED SYMPTOMS/REVIEW OF SYMPTOMS: Sick Contacts: contacts with similar symptoms - no Constitutional: denies appetite changes, denies chills, denies fatigue, denies fever and denies sweats. HEENT: denies sore throat, nasal drainage, nasal congestion, earache and eye irritation, redness or discharge Cardiovascular: denies chest pain, denies palpitations and denies tachycardia. Respiratory: denies cough, denies chest congestion, denies dyspnea on exertion, denies inability to take deep breath, denies shortness of breath and denies wheezing. Gastrointestinal: denies abdominal pain, denies diarrhea, denies nausea and denies vomiting. Genitourinary: denies dysuria, denies flank pain, denies hematuria, denies incontinence, denies urgency, denies urinary frequency and denies discolored urine. Skin: denies lesions and denies rash. Hem/Lymph: denies lymphadenopathy. Musculoskeletal: left foot pain PAST HISTORY Past Medical History: Diagnosis Date Depression 1999 Dr. Tan Hypoglycemia 2000 Immunizations: UTD Family History Problem Relation Age of Onset Hypertension Mother Depression Mother Cancer Father Social History Socioeconomic History Marital status: Single Spouse name: Not on file Number of children: Not on file Years of education: Not on file Highest education level: Not on file Occupational History Not on file Social Needs Financial resource strain: Not on file Food insecurity: Worry: Not on file Inability: Not on file Transportation needs: Medical: Not on file Non-medical: Not on file Tobacco Use Smoking status: Former Smoker Packs/day: 0.25 Years: 20.00 Pack years: 5.00 Types: Cigarettes Last attempt to quit: 03/04/2015 Years since quittin.6 Smokeless tobacco: Never Used Substance and Sexual Activity Alcohol use: Yes Alcohol/week: 3.0 standard drinks Types: 3 Cans of beer per week Comment: Occasional Drinker Drug use: No Sexual activity: Never Lifestyle Physical activity: Days per week: Not on file Minutes per session: Not on file Stress: Not on file Relationships Social connections: Talks on phone: Not on file Gets together: Not on file Attends anabaptist service: Not on file Active member of club or organization: Not on file Attends meetings of clubs or organizations: Not on file Relationship status: Not on file Intimate partner violence: Fear of current or ex partner: Not on file Emotionally abused: Not on file Physically abused: Not on file Forced sexual activity: Not on file Other Topics Concern Not on file Social History Narrative Not on file Health Maintenance Due Topic Date Due VARICELLA VACCINES (1 of 2 - 2-dose childhood series) 1982 DTaP,Tdap,and Td Vaccines (1 - Tdap) 1992 Depression Screening 1993 PAP SMEAR 2002 Current Meds: Current Outpatient Medications on File Prior to Visit Medication Sig Dispense Refill aspirin 81 mg chewable tablet ENGINEER OF SYSTEM DEVELOPMENT 1 T PO D 0 foLIC acid 1 mg tablet TK 1 T PO D 0 ibuprofen 200 mg tablet Take 400 mg by mouth every 6 (six) hours as needed (pain back). No current facility-administered medications on file prior to visit. ALLERGIES: Allergies Allergen Reactions Morphine Itching PHYSICAL EXAM BP 124/84 (BP Location: Right arm, Patient Position: Sitting, BP CUFF SIZE: Adult Medium) | Pulse 61 | Temp 36.8 C (98.2 F) | Resp 18 | Ht 5' 6" (1.676 m) | Wt 175 lb 9.6 oz (79.7 kg) | SpO2 97% | BMI 28.34 kg/m General: Alert, active, in no acute distress. Head: Normocephalic. Eyes: Pupils equal, round, reactive to light, EOMI, bilateral conjunctivae clear, no discharge. Ears: External auditory canals are clear. TM's ata, landmarks noted. Nose: none nasal discharge. Mouth: No lesions noted. Gums normal. Tongue symmetric. Throat: Moist mucous membranes without erythema, normal tonsils without erythema, exudates or petechiae. Neck: no lymphadenopathy. No thyromegaly. Lungs: Clear to auscultation in all lobes, good air entry bilaterally. Heart: Regular rate and rhythm, no murmur auscultated. Abdomen: Normal bowel sounds, soft, non-tender, non-distended, no hepatosplenomegaly or masses. No CVA tenderness. Skin: Skin color normal for ethnicity, texture and turgor are normal; no bruising, rashes or lesionsnoted. Capillary refill 2 sec. Musculoskeletal: left lateral aspect of foot tenderness along 4th and 5th metatarsal. Interventions in clinic: Alona was seen today for foot injury. Diagnoses and all orders for this visit: Injury of left foot, initial encounter - XR FOOT 3+ VW LEFT; Future - XR ANKLE 3+ VW LEFT; Future EXAM: XR ANKLE 3+ VW LEFT, EXAM: XR FOOT 3+ VW LEFT HISTORY: left foot injury COMPARISON: None FINDINGS: Imaging of the left ankle and left foot demonstrates an os peroneum. No acute fractures are seen. No erosions or subluxations are identified. IMPRESSION No acute bony abnormality is present. ASSESSMENT ICD-10-CM ICD-9-CM 1. Injury of left foot, initial encounter S99.922A 959.7 PLAN: Current Outpatient Medications Medication Sig aspirin 81 mg chewable tablet ENGINEER OF SYSTEM DEVELOPMENT 1 T PO D foLIC acid 1 mg tablet TK 1 T PO D ibuprofen 200 mg tablet Take 400 mg by mouth every 6 (six) hours as needed (pain back). Injury of the left foot without acute fracture Rosalio wrap applied in clinic Patient to use crutches until WBAT R.I.C.E.: Rest and elevate affected area. May apply ice pack to area 3-4 times daily, for 10-15 minutes for first 2 days, after 2 days may useheating pad on low or warm compress 3-4 times daily for 10- 15 minutes May alternate ibuprofen and tylenol for pain or swelling Follow up if not improved with in 5-7 days or sooner if any worsening of symptoms. Follow up with PCP in 1-2 weeks if symptoms persist or worsens. Plan of care, desired health behaviors, goals and medications discussed with patient/parent and educational resources and self-management tools provided. Patient/family/guardian voices understanding. Barriers to care: none Ability to manage care: good Ginger Fernandes RN - 11/11/2019 10:00 AM Nicolasa Angel Luis is a 39 year old female complains of left foot pain from falling off steps in a restaurant 2 days ago, Pain on lateral sideof foot , mild swelling and bruising noted. Pain scale 5/10. Patient used ice and elevate foot at home. Able to wiggle toes , sensation intact. Patient sent to x ray.Able to ambulate. documented in this encounter Plan of Treatment Health Maintenance Due Date Last Done Comments VARICELLA VACCINES (1 of 2 - 1982 2-dose childhood series) DTaP,Tdap,and Td Vaccines (1 - 1992 Tdap) Depression Screening 1993 PAP SMEAR 2002 INFLUENZA VACCINE (Season Ended) 2020 PNEUMOCOCCAL 0-64 YEARS COMBINED Aged Out No longer eligible based on SERIES patient's age to complete this topic documented as of this encounter Results XR ANKLE 3+ VW LEFT (11/11/2019 10:38 AM CDT) Specimen Impressions Performed At [facility]/VR/DOSE No acute bony abnormality is present. Narrative Performed At EXAM: [facility]/VR/DOSE XR ANKLE 3+ VW LEFT, EXAM: XR FOOT 3+ VW LEFT HISTORY: left foot injury COMPARISON: None FINDINGS: Imaging of the left ankle and left foot demonstrates an os peroneum. No acute fractures are seen. No erosions or subluxations are identified. Procedure Note [facility], Radiant Results Inft User - 2019 2:04 PM CDT EXAM: XR ANKLE 3+ VW LEFT, EXAM: XR FOOT 3+ VW LEFT HISTORY: left foot injury COMPARISON: None FINDINGS: Imaging of the left ankle and left foot demonstrates an os peroneum. No acute fractures are seen. No erosions or subluxations are identified. IMPRESSION No acute bony abnormality is present. Performing Organization Address City/State/Zipcode Phone Number [facility]/VR/DOSE XR FOOT 3+ VW LEFT (11/11/2019 10:38 AM CDT) Specimen Impressions Performed At [facility]/VR/DOSE No acute bony abnormality is present. Narrative Performed At EXAM: [facility]/VR/DOSE XR ANKLE 3+ VW LEFT, EXAM: XR FOOT 3+ VW LEFT HISTORY: left foot injury COMPARISON: None FINDINGS: Imaging of the left ankle and left foot demonstrates an os peroneum. No acute fractures are seen. No erosions or subluxations are identified. Procedure Note [facility], Radiant Results Inft User - 2019 2:04 PM CDT EXAM: XR ANKLE 3+ VW LEFT, EXAM: XR FOOT 3+ VW LEFT HISTORY: left foot injury COMPARISON: None FINDINGS: Imaging of the left ankle and left foot demonstrates an os peroneum. No acute fractures are seen. No erosions or subluxations are identified. IMPRESSION No acute bony abnormality is present. Performing Organization Address City/State/Zipcode Phone Number [facility]/VR/DOSE documented in this encounter Visit Diagnoses Diagnosis Injury of left foot, initial encounter - Primary documented in this encounter Insurance Payer Benefit Plan / Subscriber ID Effective Phone Address T e Group Dates HIM [facility] [id number] 2016-Jeff [id number] [place] [address] documented as of this encounter
--- OUTSIDE RECORDS SUMMARY | 2019-12-14 22:40 | XMS REPORT | Summary of Care ---
:1980 Author Organization [facility] Address [address] [place] [address] Care Team Providers Name Role Phone Kwadwo Yee MD Primary Care Provider [phone] Reason for Referral Radiology Services ([facility]) Status Reason Specialty Diagnoses / Referred By Referred To Procedures Contact Contact New Request Diagnostic Diagnoses Injury of left foot, initial encounter Delilah Simons, Radiology Procedures XR ANKLE 3+ VW LEFT REGULATORY AND COMPLIANCE TECHNICIAN [address] [place] [address] Radiology Services ([facility]) Status Reason Specialty Diagnoses / Referred By Referred To Procedures Contact Contact New Request Diagnostic Diagnoses Injury of left foot, initial encounter Delilah Simons, Radiology Procedures XR FOOT 3+ VW LEFT REGULATORY AND COMPLIANCE TECHNICIAN [address] [place] [address] Reason for Visit Radiology Services ([facility]) Status Reason Specialty Diagnoses / Referred By Referred To Procedures Contact Contact New Request Diagnostic Diagnoses Injury of left foot, initial encounter Delilah Simons, Radiology Procedures XR ANKLE 3+ VW LEFT REGULATORY AND COMPLIANCE TECHNICIAN [address] [place] [address] Encounter Details Date Type Department Care Team Description 11/11/2019 Hospital Encounter [facility] Delilah Simons, REGULATORY AND COMPLIANCE TECHNICIAN Arrived Urgent Care - Radiol ogy [address] [place] [address] [phone] Allergies Active Allergy Reactions Severity Noted Date Comments Morphine Itching 03/18/2015 documented as of this encounter (statuses as of 11/12/2019) Medications Medication Sig Dispensed Refills Start Date End Date Status ibuprofen 200 mg Take 400 mg by 0 Active tablet mouth every 6 (six) hours as needed (pain back). aspirin 81 mg chewable ORACLE ASCP CONSULTANT 1 T PO D 0 07/13/2018 Active tablet foLIC acid 1 mg tablet TK 1 T PO D 0 07/13/2018 Active documented as of this encounter (statuses as of 11/12/2019) Active Problems Problem Noted Date Hypoglycemia 04/20/2015 Depression 03/18/2015 documented as of this encounter (statuses as of 11/12/2019) Social History Tobacco Use Types Packs/Day Years [...] of this encounter Last Filed Vital Signs Not on filedocumented in this encounter Plan of Treatment Health [...] this topic documented as of this encounter Procedures Procedure Name Priority Date/Time Associated Diagnosis Comme nts XR FOOT 3+ VW LEFT [facility] 11/11/2019 10:38 AM Injury of left foot, Results for this CDT initial encounter procedure are in the results section. XR ANKLE 3+ VW LEFT [facility] 11/11/2019 10:38 AM Injury of left foot, Results for this CDT initial encounter procedure are in the results section. documented in this encounter Results XR ANKLE 3+ VW LEFT (11/11/2019 10:38 AM CDT) Specimen Impressions Performed At [facility]/VR/DOSE No acute bony abnormality is present. Narrative [...] bony abnormality is present. Performing Organization Address [facility] [place] [facility]/DOSE XR FOOT 3+ VW LEFT (11/11/2019 10:38 AM CDT) Specimen Impressions Performed At P[facility]/VR/DOSE No acute bony abnormality is present. Narrative [...] bony abnormality is present. Performing Organization Address [facility] [place] [facility]/VR/DOSE documented in this encounter Visit Diagnoses Diagnosis Injury of left foot, initial encounter documented in this encounter Insurance Payer Benefit Plan / Subscriber ID Effective Phone Address [facility] Dates HIM [facility] [id number] 2016-Prese [phone] [address] X [employer] HEALTH [facility]ICE [facility]ALTH [facility] [phone] [place] [address] documented as of this encounter
[2019-12-15 00:23] LABS: Protime INR 0.96
[2019-12-15 00:25] LABS: Absolute Lymphocytes (CBC) 1.8 K/uL (0.7-4.9); Basophils % 1.3 % (0-1.3); Hematocrit 40.6 % (36.0-45.0); Lymphocytes % 41.1 % (15.3-44.8); MPV 8.6 fL (7.6-11.3); RBC Red Blood Cell Count 4.62 M/uL (3.86-4.86)
[2019-12-15 00:39] LABS: ALT/SGPT 24 U/L (12-78); AST/SGOT 19 U/L (15-37); Albumin 3.9 g/dL (3.4-5.0); Alkaline Phosphatase 73 U/L (45-117); BUN Blood Urea Nitrogen 17 mg/dL (7-18); Bicarbonate 24 mmol/L (21-32); Bilirubin Direct 0.1 mg/dL (0-0.2); Bilirubin Total 0.3 mg/dL (0.2-1.0); Glucose Level 92 mg/dL (74-106); Magnesium 2.1 mg/dL (1.8-2.4); NT PRO-BNP 61 pg/mL (<125); Potassium 3.8 mmol/L (3.5-5.1); Protein, Total 7.5 g/dL (6.4-8.2); Sodium Level 141 mmol/L (136-145); Troponin (Emerg Dept Use Only) < 0.02 ng/mL (0.0-0.045)
[2019-12-15] MEDS ORDERED: PANTOPRAZOLE 40 MG INJ ONE (00:42)
[2019-12-15] MEDS ORDERED: HYDROCODONE/APAP 7.5/325 MG TAB ONE (01:24)
--- NOTE | 2019-12-15 02:28 | EDPHYS ---
Physician Documentation [facility] Name: Alona Hein Age: 39 yrs Sex: Female : 1980 Arrival Date: 12/14/2019 Time: 22:40 Bed 20 Private MD: ED Physician Markel Alvarez HPI: 12/14 02:06 This 39 yrs old Female presents to ER via Ambulatory with complaints of Chest snw Pain. 02:06 Onset: The symptoms/episode began/occurred suddenly, yesterday, and became persistent. snw Associated signs and symptoms: Pertinent positives: chest pain. The patient has not experienced similar symptoms in the past, but family has similar symptoms. The patient has not recently seen a physician. 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 - Social history:: Smoking status: Patient/guardian denies using tobacco, the patient reports quitting approximately 3 years ago. ROS: 12/14 02:05 Constitutional: Negative for fever, chills, and weight loss, Eyes: Negative for injury, snw pain, redness, and discharge, ENT: Negative for injury, pain, and discharge, Neck: Negative for injury, pain, and swelling, Cardiovascular: Positive for chest pain, palpitations, negative for edema, Pt in a walking boot to left foot Respiratory: Negative for shortness of breath, cough, wheezing, and pleuritic chest pain, Abdomen/GI: Negative for abdominal pain, nausea, vomiting, diarrhea, and constipation, Back: Negative for injury and pain, : Negative for injury, bleeding, discharge, and swelling, MS/Extremity: Negative for injury and deformity, Skin: Negative for injury, rash, and discoloration, Neuro: Negative for headache, weakness, numbness, tingling, and seizure, Psych: Negative for depression, anxiety, suicide ideation, homicidal ideation, and hallucinations. Exam: 12/13 22:40 Constitutional: This is a well developed, well nourished patient who is awake, alert, snw and in no acute distress. Head/Face: Normocephalic, atraumatic. Eyes: Pupils equal round and reactive to light, extra-ocular motions intact. Lids and lashes normal. Conjunctiva and sclera are non-icteric and not injected. Cornea within normal limits. Periorbital areas with no swelling, redness, or edema. ENT: Nares patent. No nasal discharge, no septal abnormalities noted. Tympanic membranes are normal and external auditory canals are clear. Oropharynx with no redness, swelling, or masses, exudates, or evidence of obstruction, uvula midline. Mucous membranes moist. Neck: Trachea midline, no thyromegaly or masses palpated, and no cervical lymphadenopathy. Supple, full range of motion without nuchal rigidity, or vertebral point tenderness. No Meningismus. Chest/axilla: Normal chest wall appearance and motion. Nontender with no deformity. No lesions are appreciated. Respiratory: Lungs have equal breath sounds bilaterally, clear to auscultation and percussion. No rales, rhonchi or wheezes noted. No increased work of breathing, no retractions or nasal flaring. Abdomen/GI: Soft, non-tender, with normal bowel sounds. No distension or tympany. No guarding or rebound. No evidence of tenderness throughout. Back: No spinal tenderness. No costovertebral tenderness. Full range of motion. Skin: Warm, dry with normal turgor. Normal color with no rashes, no lesions, and no evidence of cellulitis. MS/ Extremity: Pulses equal, no cyanosis. Neurovascular intact. Full, normal range of motion. Neuro: Awake and alert, GCS 15, oriented to person, place, time, and situation. Cranial nerves II-XII grossly intact. Motor strength 5/5 in all extremities. Sensory grossly intact. Cerebellar exam normal. Normal gait. Psych: Awake, alert, with orientation to person, place and time. Behavior, mood, and affect are within normal limits. Cardiovascular: Rate: normal, Rhythm: regular, Pulses: no pulse deficits are appreciated, Heart sounds: normal. Vital Signs: 22:59 BP 151 / 81; Pulse 68; Resp 16 S; Temp 98.3(O); Pulse Ox 100% on R/A; Weight 77.11 kg jd3 (R); Height 5 ft. 6 in. (167.64 cm) (R); Pain 2/; 12/14 01:06 BP 114 / 77; Pulse 64; Resp 16; Pulse Ox 100% on R/A; Pain 2/10; ls4 02:06 BP 104 / 72; Pulse 60; Resp 20 S; Pulse Ox 98% on R/A; jd3 12/13 22:59 Body Mass Index 27.44 (77.11 kg, 167.64 cm) jd3 MDM: 12/13 23:13 Patient medically screened. snw 12/14 01:35 Data reviewed: vital signs, nurses notes. Data interpreted: Pulse oximetry: on room air snw is 100 %. Interpretation: normal. Response to treatment: pt states she is still having chest pain. 01:35 Counseling: I had a detailed discussion with the patient and/or guardian regarding: the snw historical points, exam findings, and any diagnostic results supporting the discharge/admit diagnosis, lab results, the need for outpatient follow up, for definitive care, a grants and contracts assistant. 02:16 Special discussion: Based on the patient's history, exam, and Dx evaluation, there is snw no indication for emergent intervention or inpatient Tx. It is understood by the patient/guardian that if the Sx's persist or worsen they need to return immediately for re-evaluation. Based on the history and exam findings, there is no indication for further emergent testing or inpatient evaluation. I discussed with the patient/guardian the need to see the grants and contracts assistant for further evaluation of the symptoms. I discussed with the patient/guardian the need to see the primary care provider for further evaluation of the symptoms. ED course: Pt with family hx of cardiac disease. States she is still having chest pain, troponin and EKG x 2 within normal. Will encourage pt to follow up with cardiology for eval and possible Holter monitoring. 12/13 23:38 Order name: Basic Metabolic Panel; Complete Time: 00:54 12/13 23:38 Order name: CBC with Diff; Complete Time: 00:54 12/13 23:38 Order name: LFT's; Complete Time: 00:54 12/13 23:38 Order name: Magnesium; Complete Time: 00:54 12/13 23:38 Order name: NT PRO-BNP; Complete Time: 00:54 [facility] 12/13 23:38 Order name: PT-INR; Complete Time: 00:54 [facility] 12/13 23:07 Order name: EKG; Complete Time: 23:08 [facility] 12/13 23:38 Order name: Troponin (emerg Dept Use Only); Complete Time: 00:54 [facility] 12/13 23:38 Order name: XRAY Chest (1 view) [facility] 12/14 01:18 Order name: Troponin I; Complete [facility]: 02:15 [facility] 12/[facility] 01:20 Order name: EKG; Complete Time: 01:21 [facility] 12/13 23:08 Order name: EKG - Nurse/Tech; Complete Time: 23:09 [facility] 12/13 23:38 Order name: Cardiac monitoring; Complete Time: 00:37 [facility] 12/13 23:38 Order name: IV Saline Lock; Complete Time: 00:37 [facility] 12/13 23:38 Order name: Labs collected and sent; Complete Time: 01:05 [facility] 12/13 23:38 Order name: O2 Per Protocol; Complete Time: 00:38 [facility] 12/13 23:38 Order name: O2 Sat Monitoring; Complete Time: 00:38 in12/14 01:20 Order name: EKG - Nurse/Tech; Complete Time: 01:42 [facility] 12/14 01:23 Order name: EKG; Complete Time: 01:33 snw EC:53 Rate is 72 beats/min. Rhythm is regular. QRS [place] is Normal. [place] interval is normal. QRS tw4 interval is normal. QT interval is normal. No Q waves. T waves are Normal. No ST changes noted. Interpreted by me. Reviewed by me. Administered Medications: 00:37 Drug: ProTONIX 40 mg Route: IVP; Site: right antecubital; ls4 01:05 Follow up: Response: No adverse reaction ls4 01:20 Drug: [place] (7.5 mg-325 mg) 1 tabs {Note: given by Patricia MARTIN.} Route: PO; jd3 02:20 Follow up: Response: No adverse reaction; RASS: Alert and Calm (0) jd3 Disposition: 05:30 Co-signature as Attending Physician, Markel Alvraez MD I agree with the assessment and tw4 plan of care. Disposition: 12/15/19 02:27 Discharged to Home. Impression: Chest pain, unspecified. - Condition is Stable. - Discharge Instructions: Nonspecific Chest Pain, Gastroesophageal Reflux Disease, Adult, Aspirin and Your Heart. - Prescriptions for Protonix 40 mg Oral Tablet - take 1 tablet by ORAL route once daily; 30 tablet. - Medication Reconciliation Form, Thank You Letter, Antibiotic Education, Prescription Opioid Use form. - Follow up: Emergency Department; When: As needed; Reason: Worsening of condition. Follow up: Private Physician; When: 2 - 3 days; Reason: Recheck today's complaints, Continuance of care, Re-evaluation by your physician. Signatures: Dispatcher [employer] EDMS Tarah Thomas, LAM-C OFFICE NURSE PRACTITIONER-Csnw Siva Shine RN RN jd3 Markel Alvarez MD MD tw4 Patricia Lemus RN RN ls4 Linda Green5 Corrections: (The following items were deleted from the chart) 02:46 02:27 12/15/2019 02:27 Discharged to Home. Impression: Chest pain, unspecified. jd3 Condition is Stable. Forms are Medication Reconciliation Form, Thank You Letter, Antibiotic Education, Prescription Opioid Use. Follow up: Emergency Department; When: As needed; Reason: Worsening of condition. Follow up: Private Physician; When: 2 - 3 days; Reason: Recheck today's complaints, Continuance of care, Re-evaluation by your physician. snw
--- NOTE | 2019-12-15 02:28 | ER ---
Nurse's Notes [facility] Name: Alona Hein Age: 39 yrs Sex: Female : 1980 Arrival Date: 12/14/2019 Time: 22:40 Bed 20 Private MD: Diagnosis: Chest pain, unspecified Presentation: 12/13 22:55 Chief complaint: Patient states: "Chest pain since about 1300 yesterday. it has gone jd3 and then come back today.". Coronavirus screen: Proceed with normal triage. Ebola Screen: Patient negative for fever greater than or equal to 101.5 degrees Fahrenheit, and additional compatible Ebola Virus Disease symptoms. Initial Sepsis Screen: Does the patient meet any 2 criteria? No. Patient's initial sepsis screen is negative. Does the patient have a suspected source of infection? No. Patient's initial sepsis screen is negative. Risk Assessment: Do you want to hurt yourself or someone else? Patient reports no desire to harm self or others. Onset of symptoms was December 14, 2019. 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 - Social history:: Smoking status: Patient/guardian denies using tobacco, the patient reports quitting approximately 3 years ago. Screenin/26 00:01 Abuse screen: Denies threats or abuse. Denies injuries from another. Nutritional ls4 screening: No deficits noted. Tuberculosis screening: No symptoms or risk factors identified. Fall Risk None identified. Assessment: 12/13 23:59 General: Appears in no apparent distress. comfortable, Behavior is calm, cooperative. ls4 Pain: Complains of pain in chest Pain does not radiate. Pain began 1 day ago. Is intermittent. Cardiovascular: Denies diaphoresis, fatigue, lightheadedness, nausea, palpitations, shortness of breath, syncope, vomiting, Capillary refill < 3 seconds Patient's skin is warm and dry. Respiratory: Airway is patent Respiratory effort is even, unlabored, Respiratory pattern is regular, Breath sounds are clear bilaterally. 12/14 00:15 Reassessment: Patient appears in no apparent distress at this time. Patient and/or ls4 family updated on plan of care and expected duration. Pain level reassessed. Patient is alert, oriented x 3, equal unlabored respirations, skin warm/dry/pink. Neuro: Level of Consciousness is awake, alert, obeys commands, Oriented to person, place, time, situation, Pointer Helper are equal bilaterally Moves all extremities. Gait is steady, Speech is normal, Facial symmetry appears normal, Pupils are PERRLA, Intact. Derm: Skin is pink, warm \\T\\ dry. 01:07 Reassessment: Patient appears in no apparent distress at this time. Patient and/or ls4 family updated on plan of care and expected duration. Pain level reassessed. Patient is alert, oriented x 3, equal unlabored respirations, skin warm/dry/pink. 02:06 Reassessment: Patient appears in no apparent distress at this time. No changes from [facility] previously documented assessment. Patient and/or family updated on plan of care and expected duration. Pain level reassessed. Patient is alert, oriented x 3, equal unlabored respirations, skin warm/dry/pink. 02:45 Reassessment: Patient appears in no apparent distress at this time. Patient and/or jd3 family updated on plan of care and expected duration. Pain level reassessed. Patient is alert, oriented x 3, equal unlabored respirations, skin warm/dry/pink. Vital Signs: 12/13 22:59 BP 151 / 81; Pulse 68; Resp 16 S; Temp 98.3(O); Pulse Ox 100% on R/A; Weight 77.11 kg j (R); Height 5 ft. 6 in. (167.64 cm) (R); Pain 07/01; 12/14 01:06 BP 114 / 77; Pulse 64; Resp 16; Pulse Ox 100% on R/A; Pain 2; ls4 02:06 BP 104 / 72; Pulse 60; Resp 20 S; Pulse Ox 98% on R/A; [facility] 12/13 22:59 Body Mass Index 27.44 (77.11 kg, 167.64 cm) jd3 ED Course: 12/13 22:40 Patient arrived in ED. bp1 22:56 Triage completed. jd3 23:00 Arm band placed on. jd3 23:08 Tarah Thomas FNP-C [facility]. snw 23:08 Marekl Alvarez MD is Attending Physician. snw 23:08 Patricia Lemus, RN is Primary Nurse. ls4 12/14 00:01 Patient has correct armband on for positive identification. Bed in low position. Call ls4 light in reach. Side rails up X 1. cardiac monitor on. Pulse ox on. NIBP on. 00:08 No provider procedures requiring assistance completed. Initial lab(s) drawn, by de, ls4 sent to lab. Inserted saline lock: 20 gauge in right antecubital area, using aseptic technique. Blood collected. 00:08 Patient maintains SpO2 saturation greater than 95% on room air. ls4 00:09 XRAY Chest (1 view) In Process Unspecified. EDMS 01:08 No apparent distress. Resting quietly. ls4 02:45 IV discontinued, intact, bleeding controlled, No redness/swelling at site. Pressure jd3 dressing applied. Administered Medications: 00:37 Drug: ProTONIX 40 mg Route: IVP; Site: right antecubital; ls4 01:05 Follow up: Response: No adverse reaction ls4 01:20 Drug: [place] (7.5 mg-325 mg) 1 tabs {Note: given by Patricia MARTIN.} Route: PO; jd3 02:20 Follow up: Response: No adverse reaction; RASS: Alert and Calm (0) jd3 Outcome: 02:27 Discharge ordered by . snw 02:45 Discharged to home ambulatory, with family. jd3 02:45 Condition: stable 02:45 Discharge instructions given to patient, Instructed on discharge instructions, follow up and referral plans. medication usage, Demonstrated understanding of instructions, follow-up care, medications, Prescriptions given X 1. 02:46 Patient left the ED. jd3 Signatures: Dispatcher [employer] EDNY Tarah Thomas FNP-C FNP-Siva Mcpherson RN RN jd3 Patricia Lemus, MARIO RN ls4 Gifty Moise bp1 Corrections: (The following items were deleted from the chart) 01:08 00:14 Patricia Lemus, RN is Primary Nurse. ls4 ls4
[2019-12-15 03:34] VITALS: TEMP 98.3
[2019-12-15 03:37] VITALS: BP 104/72; O2SAT 98
--- NOTE | 2019-12-15 07:25 | EKG ---
Test Date: 2019-12-14 Test Time: 22:59:12 Customer Trainer: DONALDO MEASUREMENT RESULTS: Intervals: Rate: 72 DC: 144 QRSD: 84 QT: 400 QTc: 438 [place]: P: 3 DC: 144 QRS: 43 T: 69 INTERPRETIVE STATEMENTS: Normal sinus rhythm Normal ECG Compared to ECG 07/12/2018 16:10:01 No significant changes Electronically Signed On 12-15-19 07:24:51 CDT by Jose D Monge
--- NOTE | 2019-12-15 07:25 | EKG ---
Test Date: 2019-12-15 Test Time: 01:30:39 Lead Refiner: JOSTIN MEASUREMENT RESULTS: Intervals: Rate: 56 MO: 146 QRSD: 88 QT: 436 QTc: 420 [place]: P: 56 MO: 146 QRS: 14 T: 42 INTERPRETIVE STATEMENTS: Sinus bradycardia Otherwise normal ECG Compared to ECG 12/14/2019 22:59:12 Sinus rhythm no longer present Electronically Signed On 12-15-19 07:24:48 CDT by Jose D Monge
--- NOTE | 2019-12-15 10:31 | RAD REPORT ---
EXAM DESCRIPTION: Gricel Single View12/15/2019 12:05 am CLINICAL HISTORY: Chest pain COMPARISON: 2018 FINDINGS: Calcified granuloma right lung The lungs appear clear of acute infiltrate. The heart is normal size. Scoliosis IMPRESSION: No acute abnormalities displayed
== END 2019-12-15 02:46 | disposition home or self-care (01) ==
LOC: ER 22:37
DX: R07.9 Chest pain, unspecified (principal); Z88.5 Allergy status to narcotic agent
CPT/HCPCS: 93005 ×2; 85025; 80048; 36415; 83735; 85610; 80076; 84484 ×2; 83880; 71045; C9113; 96374; 99285

== ENCOUNTER 2020-07-16 11:24 | Day surgery (SDC) | payer OTHER ==
[2020-07-13 15:36] LABS: Basophils % 0.9 % (0-1.3); Hematocrit 44.2 % (36.0-45.0); MPV 8.8 fL (7.6-11.3); RBC Red Blood Cell Count 4.94 M/uL (3.86-4.86)
[2020-07-13 15:41] LABS: Urine Appearance TURBID; Urine Bilirubin NEGATIVE (NEG); Urine Blood NEGATIVE (NEG); Urine Color YELLOW; Urine Glucose NEGATIVE (NEG); Urine Protein NEGATIVE (NEG); Urine pH 7.5 (5.0-7.0)
[2020-07-13 15:47] LABS: Urine Microscopic Reflex ORDER UMIC
[2020-07-13 16:30] LABS: Urine Amorphous Sediment 4+ /HPF (NONE SEEN); Urine Bacteria <20 /HPF (<20); Urine RBC NONE SEEN /HPF (NONE SEEN)
[~2020-07-16 11:24] MED LIST: CEFAZOLIN/SWI 2gm 2 GM/20 ML SYR IVP SCH; Ringers Lactate 1,000 ML IV SCH; SCOPOLAMINE HYDROBROMIDE PATCH TD ONE
[2020-07-16] MEDS ORDERED: SCOPOLAMINE HYDROBROMIDE PATCH TD ONE (12:05)
[2020-07-16] MEDS ORDERED: Ringers Lactate 1,000 ML IV ONE ×3 (12:05→16:13)
[2020-07-16] MEDS ORDERED: CEFAZOLIN/SWI 2gm 2 GM/20 ML SYR ONE (12:05)
[2020-07-16] MEDS ORDERED: BUPIVACAINE 0.25% PF 30 ML VIAL ONE (14:24)
[2020-07-16] MEDS ORDERED: KETAMINE HCL 500 MG/5 ML VIAL ONE (14:41)
[2020-07-16] MEDS ORDERED: FENTANYL CITR 250 MCG/5 ML ONE (14:41)
[2020-07-16] MEDS ORDERED: LIDOCAINE 2% MPF 5 ML VIAL ONE (14:41)
[2020-07-16] MEDS ORDERED: ROCURONIUM 50 MG/5 ML VIAL IV ONE (14:41)
[2020-07-16] MEDS ORDERED: dexAMETHasone 10 MG/ML VIAL ONE (14:41)
[2020-07-16] MEDS ORDERED: propofoL 200 MG/20 ML VIAL IV ONE (14:41)
[2020-07-16] MEDS ORDERED: MIDAZOLAM HCL 2 MG/2 ML INJ ONE ×2 (14:41→18:41)
[2020-07-16] MEDS ORDERED: ONDANSETRON 4 MG/2 ML VIAL ONE (14:42)
[2020-07-16] MEDS ORDERED: GLYCOPYRROLATE 0.2 MG/ML SYR ONE ×2 (15:38→16:58)
[2020-07-16] MEDS ORDERED: KETOROLAC 30 MG/ML INJ ONE (16:17)
[2020-07-16] MEDS ORDERED: NEOSTIGMINE 1 MG/ML -5 ML ONE (17:13)
[2020-07-16] MEDS ORDERED: Phenylephrine HCl 10 MG/ML 1 ML VIAL ONE (17:19)
[2020-07-16] MEDS: FENTANYL CITR 100 MCG/2 ML ONE ×2 (17:34→17:44)
[2020-07-16] MEDS: HYDROMORPHONE HCL 1 MG/ML INJ ONE ×4 (17:52→18:12)
[2020-07-16] MEDS: HYDROCODONE/APAP 5/325 MG TAB ONE ×2 (19:00→20:00)
[2020-07-16 19:21] VITALS: O2SAT 98
[2020-07-16] MEDS ORDERED: IBUPROFEN 400 MG TAB ONE (20:12)
[2020-07-16] MEDS ORDERED: IBUPROFEN 200 MG TAB PO ONE (20:12)
[2020-07-16 20:30] VITALS: BP 131/63; TEMP 98
--- NOTE | 2020-08-29 22:21 | OP ---
Date of Procedure: 07/16/2020 Surgeon: Deedee Andrade MD Science Technician: Meagan Olguin. Preoperative Diagnoses: Pelvic pain and history of menorrhagia, status post ablation. Postoperative Diagnoses: Pelvic pain and history of menorrhagia, status post ablation, postablation tubal ligation syndrome, bladder adhesions. Procedures Performed: Total laparoscopic hysterectomy, bilateral salpingectomy, lysis of bladder adh esions, cystoscopy. Estimated Blood Loss: 50 mL. Specimens: Uterus, bilateral tubes. Complications: None. Drains: None. Condition: Stable. Indications: The patient is a 39-year-old female, 2, para 0, 2 C-sections in the past, had m enorrhagia, for which she was evaluated and underwent an endometrial ablation about 7 to 8 years ago, has done well without any bleeding, however, her pelvic pain has progressively gotten worse to the p oint that there is a dull ache and exacerbation of pain constantly and needs some medication to manag e her daily schedule, so we discussed about all. She was evaluated with ultrasound, no evidence of a ny hematometra. Then, offered options of diagnostic laparoscopy with endometriosis excision. Medica l conservative treatment measures including Elavil XR, Lupron, and depot medroxyprogesterone. The pa tient decided to proceed with a total laparoscopic hysterectomy, bilateral salpingectomies, which was also an alternative given the chance that there was the endometriosis probably inside the uterus as well or that the scar tissue from the ablation has caused the pain as she has now. So, after informi ng all the options and alternatives, she was consented and risk of the bleeding, infection, injury to the bowel, bladder, and ureters were all discussed with the patient, slightly increased risk of blad namita and ureteric injury to be given the prior surgery that she has had. Procedure In Detail: After she was consented, she was taken to the OR. She was COVID negative. She was re-consented in the preop area and taken back to OR, placed in supine fashion on the operating t able. General anesthesia was given. She was placed in a dorsal lithotomy position using Lc stirr ups. A 2 g of Ancef were given preop. Abdomen, vulva, vagina, and perineum were prepped and draped in a sterile fashion. Loyola was placed to drain the bladder and attached for retrograde filling. La rge cup VCare was introduced into the uterus for uterine manipulation, difficulty entering the uterin e cavity. However, this was made possible after looking through the scope and then coming back down and reinserting it for positioning appropriately. Once this area was draped, a 1 cm infraumbilical i ncision was made, Marcaine was injected at all the skin incisions at entry and at the fascia, both th e entry and exit as well. Then, once skin was incised, fascia was exposed, this was incised, tagged with 0 Vicryl sutures, peritoneum entered bluntly, S retractors placed, Alexei introduced. Site of e ntry was checked, unremarkable. This was an infraumbilical incision. Then, after adequate insufflat ion through the Alexei, the site of entry was checked and was unremarkable. The patient was placed i n Trendelenburg and 5 left lower quadrant and 10 suprapubic ports were placed under direct vision. T hen, the pelvic cavity was visualized. There was no evidence of any extraperitoneal endometriosis. Ovaries appeared to be normal. The tubes dilated. Bladder adhesions noted at her section s car. The bladder was filled and drained and borders were visualized as well as the VCare cup. Once all this was marked out visually, the ureters were traced from the pelvic brim to the ureteric tunnel and there was no significant displacement. The left tube was removed. Then, mesosalpinx was dissected, utero-ovarian ligament was taken down. The round ligament taken down, broad ligament opened up anteriorly. The bladder flap was raised to t he anterior vaginal wall and posteriorly peritoneum taken down to the uterosacral ligament. The broa d ligament was skeletonized to expose the vessels and here careful dissection was performed in the pa ravesical space to expose the anterior vaginal wall first. Then dissecting here, the adhesions were noted and then going on the opposite side, the tube was removed and utero-ovarian ligament was taken down, the round ligament taken down. Then, anterior broad ligament opened up and dissected to the an terior paravesical space. Once this was done, the posterior broad ligament dissected to the uterosac ral ligament, then the broad ligament was skeletonized. The vessels were exposed and then the attent ion was directed to bladder dissection after the scar was visualized on both sides. Then, the perito neum was taken down carefully. Then, the bladder was sharply dissected as well as with bipolar caute ry retracting it down past the VCare cup exposing this very well. The circumferential colpotomy was performed. The blood vessels were taken down on each side of the u terine pedicles with help of bipolar and LigaSure. Then, cardinal ligament was taken down, similar d issection on the opposite side as well. Circumferential colpotomy was performed with a monopolar renetta k blade and the specimen detached and pulled out through the vagina. Ovaries were left intact and mcgowan d good blood supply. No evidence of electrical, mechanical, or thermal injury to the ureters. Thoro ugh irrigation suction was performed with at the vaginotomy. Then, closure was performed with 0 Vicr yl suture at both angles and then the simple sutures placed and 3 [id number] were placed in the center and tied down with excellent closure and support. The posterior uterosacral ligament was sti ll attached to the vagina. The scope was removed. After the trocars were removed, gas was desufflated and injected at the incis ion. Then, fascia was closed with 0 Vicryl sutures, tied together and simple 0 Vicryl suture at the fascial incision on the suprapubic site. All skin incisions closed with the help of interrupted 4-0 Vicryl sutures and Steri-Strips placed. Loyola was removed, cystoscopy was performed with 30 degree lens, normal saline, completely unremarkab le. Normal jets of urine from both ureteric orifices. No evidence of any injury to the bladder. Th e vaginal occluder was removed and was clean. Vagina was cleaned up. Instrument, needle, and sponge counts were correct at the end of the case. The patient tolerated the procedure well. She was recovered from anesthesia and taken to PACU in stable condition. HALI/DRE Voice ID: [id number] Report ID: [id number]
== END 2020-07-16 21:30 | disposition home or self-care (01) ==
LOC: OR 11:24
PROVIDERS: ATTEND Obstetrics & Gynecology
PROC: 0UT74ZZ Resection of Bilateral Fallopian Tubes, Percutaneous Endoscopic Approach (ICD-10-PCS; 2020-07-16)
PROC: 0UT94ZZ Resection of Uterus, Percutaneous Endoscopic Approach (ICD-10-PCS; principal; 2020-07-16 12:30)
DX: R10.2 Pelvic and perineal pain (principal); N99.85 Post endometrial ablation syndrome; N91.1 Secondary amenorrhea; Z20.822 Contact with and (suspected) exposure to COVID-19
CPT/HCPCS: 85025; 36415; 86900; 86850; 81025; 86901; 88307; 58571; U0002; J2704; J2370; J2250 ×2; J3010 ×2; J1100; J1170 ×2; J2710; J0690; J7120 ×3; J2405; 81003; 81015

== ENCOUNTER 2021-01-13 07:03 | Day surgery (SDC) | payer OTHER ==
[2021-01-13] MEDS ORDERED: BUPIVACAINE 0.25% PF 10 ML VIAL ONE ×2 (07:44→07:49)
[2021-01-13] MEDS ORDERED: NS 0.9% VIAL 10 ML ONE (07:50)
[2021-01-13] MEDS ORDERED: dexAMETHasone 10 MG/ML VIAL ONE ×2 (07:50→07:59)
[2021-01-13] MEDS ORDERED: Ringers Lactate 1,000 ML IV ONE (07:51)
[2021-01-13] MEDS ORDERED: CEFAZOLIN/SWI 1gm 1 GM/10 ML SYR ONE (07:52)
[2021-01-13] MEDS ORDERED: propofoL 200 MG/20 ML VIAL IV ONE (07:58)
[2021-01-13] MEDS ORDERED: MIDAZOLAM HCL 2 MG/2 ML INJ ONE (07:58)
[2021-01-13] MEDS ORDERED: FENTANYL CITR 100 MCG/2 ML ONE ×2 (07:58→09:46)
[2021-01-13] MEDS ORDERED: KETOROLAC 30 MG/ML INJ ONE (07:59)
[2021-01-13] MEDS ORDERED: ROCURONIUM 50 MG/5 ML VIAL IV ONE (08:00)
[2021-01-13] MEDS ORDERED: ONDANSETRON 4 MG/2 ML VIAL ONE (08:00)
[2021-01-13] MEDS ORDERED: LIDOCAINE 1% MPF 30 ML VIAL ONE (08:00)
[2021-01-13] MEDS ORDERED: EPHEDRINE SULF 50 MG/ML VIAL ONE (08:50)
--- NOTE | 2021-01-13 09:13 | P.OP ---
Preoperative diagnosis: RIGHT inguinal hernia Postoperative diagnosis: RIGHT inguinal hernia Primary procedure: Open RIGHT inguinal hernia repair with mesh Anesthesia: GETA , Local, ANNAMARIE Estimated blood loss: <2cc Specimen: cord lipoma Findings: indirect fat containing inguinal hernia Complications: None Implants: Medium Bard Perfix Plug and Patch Transferred to: Recovery Room Condition: Good
[2021-01-13 10:00] VITALS: O2SAT 98
--- NOTE | 2021-01-13 10:29 | OP ---
Date of Procedure: 01/13/2021 Surgeon: Stalin Merida MD, Preoperative Diagnosis: Right inguinal hernia. Postoperative Diagnosis: Right inguinal hernia. Procedure Performed: Open right inguinal hernia repair with mesh. Anesthesia: General endotracheal local plus TAP block. Estimated Blood Loss: Less than 2 mL. Specimen: Cord lipoma. Findings: Indirect sac containing inguinal hernia with incarceration. Complications: None. Implants: Bard medium PerFix plug and patch hernia repair system. Disposition: The patient was transferred to recovery room in good condition. Procedure In Detail: After informed consent was obtained, the patient was brought to the operating r oom, prepped and draped in the usual sterile fashion after adequate anesthesia was achieved. An ingu inal incision was made down through subcutaneous tissues with a 15 blade. Electrocautery was used to dissect down through [place] fat and Zac fascia to expose the external oblique aponeurosis. This was opened sharply using a 15 blade and opened in its entirety using the Metzenbaum scissors. The il ioinguinal nerve was visualized and protected throughout the procedure. I then dissected down to enc ircle the round ligament and structures with a [place] drain. I then dissected free the posterior pl ane of tissues and a fat containing indirect inguinal hernia was noted at this point. The fat was li gated free from the round ligament structures and ligated using a 2-0 Vicryl suture with stick-tie an d the lipoma was removed and sent off for pathologic examination. The fat was then returned from the round ligament to the preperitoneal space and the area was palpated for a clean landing zone of the hernia plug and patch system. The plug was then sized appropriately, placed in the preperitoneal spa ce, and secured circumferentially to the shelving edges with good apposition tissue. The patch was t hen placed under the round ligament structures and secured to the pubic tubercle medially using the s florian said 2-0 PDS suture and to the medial and lateral shelving edges of the internal oblique aponeuro sis and the undersurface of the inguinal ligament and the inguinal ring. The deep inguinal ring was reconstituted at this point using the patch. The area was then copiously irrigated, dried. Then, th e external oblique aponeurosis was closed using a running 3-0 Vicryl suture. Deep dermal planes were closed en bloc using interrupted 3-0 Vicryl sutures and the skin was closed with 4-0 Monocryl in a r unning fashion. Dermabond was placed over top. The patient tolerated the procedure well without rhea dence of complication and transferred to PACU in good condition. All counts were correct at the end of the case. DENISE/DRE Voice ID: [id number] Report ID: [id number]
[2021-01-13] MEDS ORDERED: HYDROCODONE/APAP 7.5/325 MG TAB ONE (10:53)
[2021-01-13 12:01] VITALS: TEMP 97
[2021-01-13 12:13] VITALS: BP 116/78
== END 2021-01-13 11:38 | disposition home or self-care (01) ==
LOC: OR 07:03
PROVIDERS: ATTEND Surgery
PROC: 0YU50JZ Supplement Right Inguinal Region with Synthetic Substitute, Open Approach (ICD-10-PCS; principal; 2021-01-13 08:00)
DX: K40.90 Unilateral inguinal hernia, without obstruction or gangrene, not specified as recurrent (principal); Z20.822 Contact with and (suspected) exposure to COVID-19
CPT/HCPCS: 88302; 49505; U0003; J2704; J2250; J3010 ×2; J1100 ×2; J0690; J7120; J2405

== ENCOUNTER 2021-07-30 05:27 | Day surgery (SDC) | payer OTHER ==
--- NOTE | 2021-07-26 11:12 | RAD REPORT ---
EXAM DESCRIPTION: RAD - Chest Pa And Lat (2 Views) - 07/26/2021 10:41 am CLINICAL HISTORY: PRE OP FOR SURGERY, pending shoulder surgery COMPARISON: Portable chest 12/14/2019, lateral chest 11/23/2013 TECHNIQUE: Frontal and lateral views of the chest were obtained. FINDINGS: The lungs are clear of acute infiltrate or mass. Granuloma in the lateral lower right lung field has not changed. No neetu mass or lymphadenopathy seen. Heart size is normal and central vasc ulature is within normal limits. No pleural effusion or pneumothorax seen. Thoracic scoliosis prese nt similar to the prior imaging study. No aortic abnormality. IMPRESSION: No acute cardiopulmonary process. No significant change from comparison study.
[2021-07-30] MEDS ORDERED: CEFAZOLIN SODIUM 1 GM/VIAL ONE (05:37)
[2021-07-30] MEDS ORDERED: Ringers Lactate 1,000 ML IV ONE ×2 (05:37→08:57)
[2021-07-30] MEDS ORDERED: NA CHLORIDE 0.9% 50 ML ONE (05:37)
[2021-07-30] MEDS ORDERED: CELECOXIB 100 MG CAPSULE ONE (06:32)
[2021-07-30] MEDS ORDERED: ACETAMINOPHEN 500 MG TAB ONE (06:32)
[2021-07-30] MEDS ORDERED: MIDAZOLAM HCL 2 MG/2 ML INJ ONE (06:52)
[2021-07-30] MEDS ORDERED: dexAMETHasone 10 MG/ML VIAL ONE ×2 (06:52→07:44)
[2021-07-30] MEDS ORDERED: SODIUM BICARB 50 MEQ/50ML VIAL ONE (06:52)
[2021-07-30] MEDS ORDERED: FENTANYL CITR 100 MCG/2 ML ONE (06:52)
[2021-07-30] MEDS ORDERED: LIDOCAINE 1% MPF 5 ML VIAL ONE (06:52)
[2021-07-30] MEDS ORDERED: ROPLVACAINE HCL 40 ML ONE (06:53)
[2021-07-30] MEDS ORDERED: EPINEPHRINE/PF 1 MG/ML AMP ONE (06:58)
[2021-07-30] MEDS ORDERED: propofoL 200 MG/20 ML VIAL IV ONE (07:44)
[2021-07-30] MEDS ORDERED: KETOROLAC 30 MG/ML INJ ONE (07:45)
[2021-07-30] MEDS ORDERED: LIDOCAINE 2% MPF 5 ML VIAL ONE (07:45)
[2021-07-30] MEDS ORDERED: ONDANSETRON 4 MG/2 ML VIAL ONE (07:45)
[2021-07-30] MEDS ORDERED: ROCURONIUM 50 MG/5 ML VIAL IV ONE (07:50)
[2021-07-30] MEDS ORDERED: Phenylephrine HCl 10 MG/ML 1 ML VIAL ONE (09:17)
[2021-07-30] MEDS ORDERED: GLYCOPYRROLATE 0.2 MG/ML SYR ONE (09:42)
[2021-07-30] MEDS ORDERED: NEOSTIGMINE 1 MG/ML -5 ML ONE (09:43)
--- NOTE | 2021-07-30 10:06 | P.BOP ---
Preoperative diagnosis: right shoulder rotator cuff tear, impingement syndrome Postoperative diagnosis: same, right shoulder SLAP tear Primary procedure: right shoulder arthroscopic rotator cuff repair Secondary procedure: right shoulder arthroscopic SLAP debridement Other procedure(s): right shoulder arthroscopic subacromial decompression Estimated blood loss: 5 cc Specimen: none Findings: see dictation Anesthesia: General Complications: None Implants: 1- 5.5 mm arthrex corkscrew, 2- 4.75 mm Arthrex swivelock Fluids & blood products: per anesthesia record Transferred to: Recovery Room Condition: Good
[2021-07-30 10:37] VITALS: O2SAT 100
--- NOTE | 2021-07-30 10:38 | RAD REPORT ---
EXAM DESCRIPTION: RAD - Shoulder 1 View - 07/30/2021 10:26 am CLINICAL HISTORY: s/p rotator cuff repair COMPARISON: No comparisons FINDINGS/IMPRESSION: No acute fracture. No malalignment. No significant focal degenerative changes. Immediate postoperative changes. Calcified right lower lobe nodule.
[2021-07-30] MEDS ORDERED: HYDROCODONE/APAP 7.5/325 MG TAB ONE (11:25)
[2021-07-30 11:49] VITALS: BP 104/56; TEMP 96.4
--- NOTE | 2021-08-03 05:34 | OP ---
Date of Procedure: 07/30/2021 Surgeon: Christopher Ng MD Preoperative Diagnoses: 1.Right shoulder rotator cuff tear. 2.Right shoulder impingement syndrome. Postoperative Diagnoses: 1.Right shoulder rotator cuff tear. 2.Right shoulder impingement syndrome. 3.Right shoulder SLAP tear. Procedure Performed: 1.Right shoulder arthroscopic rotator cuff repair. 2.Right shoulder arthroscopic SLAP debridement. 3.Right shoulder arthroscopic subacromial decompression. Anesthesia: General endotracheal. Fluids: Per Anesthesia record. Estimated Blood Loss: 5 cc. Complications: None. Implants: 1.One 5.5 mm Arthrex corkscrew. 2.Two 4.75 mm Arthrex swivel locks. Indication For Procedure: Alona is a 40-year-old female who presented to my clinic with signs, sy mptoms, and MRI findings consistent with a right shoulder rotator cuff tear. I discussed with the mya munoz at length risks and benefits associated with operative and operative treatment. She expressed understanding and elected to proceed with operative treatment. Description Of Procedure: After informed consent was obtained, the patient was identified in the pre operative holding area. The right shoulder was marked. The patient was then brought back to the PAC U. She underwent an interscalene block to her right upper extremity performed by Anesthesia. The mya munoz was then taken back to the operating room, transferred to the operating table in supine fashion and placed under general endotracheal anesthesia. She was then placed in the beach chair position w ith right extremity well-padded. The right upper extremity was then prepped and draped in usual ster ile fashion. A time-out was initiated, correct patient and procedure performed were identified. The patient did receive preoperative prophylactic antibiotics. Via the posterior portal position, a spi nal needle was introduced in the glenohumeral joint and the shoulder was injected with 30 cc of vianca l saline. A stab incision was made posteriorly. A posterior portal was created and the arthroscope was brought in via the posterior portal position. Under direct visualization, an anterior portal and cannula were placed. A diagnostic arthroscopy was then performed and the patient was noted to have no loose bodies within the axillary pouch. The anterior-posterior labrum was stable to probe. The s ubscapularis was also stable to probe without obvious tear. There was some fraying of the superior a nd posterior labrum consistent with type 1 SLAP tear. A labral debridement was then performed using an arthroscopic shaver. The superior labrum was found to be stable to probe. There was no significa nt chondral damage noted to the humeral head or glenoid surface. The anterior aspect of the supraspi natus was then evaluated and there was noted to be a full-thickness tear. A lateral portal was place d and the obturator was brought into the shoulder joint consistent with full-thickness rotator cuff t ear. The undersurface of the rotator cuff supraspinatus was then debrided using arthroscopic shaver to healthy tissues. The greater tuberosity was then debrided using arthroscopic shaver to create a b leeding bony bed for the repair. The arthroscope was then brought to the subacromial space where a s ubacromial bursectomy was performed. There was some fraying of the coracoacromial ligament consisten t with impingement syndrome. A stab incision was made just lateral to the acromion and a single 5.5 mm double loaded corkscrew anchor was then placed for medial row fixation sutures and passed to the r otator cuff tear in an anterior-posterior fashion under direct visualization, ensuring that the bicep s tendon was not entrapped with the sutures. The suture limbs were then tied in horizontal mattress fashion to create a complete medial row fixation. The sutures were then crisscross and #2 lateral ro w Arthrex SwiveLock anchors were placed to increase surface area of the repair. Remaining sutures we re then cut. An eyelid suture was then used to reinforce the anterior tear repair and remaining sutu re limbs were cut. Next, attention was taken to the subacromial decompression. A radiofrequency ablator was then used to debride off the undersurface of the acromion. Then, arthroscopic bur was then used to perform an acromioplasty. Arthroscopic instruments were then removed without complication. Wounds were then ir rigated thoroughly with normal saline. Subcutaneous tissue was approximated using a 2-0 Vicryl. Por tals were approximated using a 3-0 Monocryl. Sterile dressings were applied. The patient is placed in a shoulder immobilizer, awakened, and transferred to PACU in stable condition. Postoperative Plan: The patient will follow up in my clinic in 1 week for wound check. She will beg in physical therapy at 4 weeks postop per medium rotator cuff repair protocol. CV/MODL Voice ID: [id number] Report ID: [id number]
== END 2021-07-30 11:40 | disposition home or self-care (01) ==
LOC: OR 05:27
PROVIDERS: ATTEND Orthopaedic Surgery Sports Medicine
PROC: 0RNJ4ZZ Release Right Shoulder Joint, Percutaneous Endoscopic Approach (ICD-10-PCS; 2021-07-30)
PROC: 0RBJ4ZZ Excision of Right Shoulder Joint, Percutaneous Endoscopic Approach (ICD-10-PCS; 2021-07-30)
PROC: 0LM14ZZ Reattachment of Right Shoulder Tendon, Percutaneous Endoscopic Approach (ICD-10-PCS; principal; 2021-07-30 08:00)
DX: M75.121 Complete rotator cuff tear or rupture of right shoulder, not specified as traumatic (principal); M75.51 Bursitis of right shoulder; M25.511 Pain in right shoulder; Z20.822 Contact with and (suspected) exposure to COVID-19
CPT/HCPCS: 93005; 71046; 73020; 29827; 29826; 29822; U0002; J2704; J0171; J2370; J2250; J3010; J1100 ×2; J2795; J2710; J7120 ×2; J2405; J0690

== ENCOUNTER 2021-08-17 19:10 | Emergency (ER) | payer OTHER ==
--- OUTSIDE RECORDS SUMMARY | 2021-08-17 19:24 | XMS REPORT | Continuity of Care Document ---
:1980 Author Organization [facility] [place] t Address [address] [place] [address] Dr. [address] [place] [address] Care Team Providers Name Role Phone JUANY PHILLIPS Primary Care Physician Unavailable Ronald Andrade Attending Clinician Unavailable Lisa MACE Attending Clinician Unavailable Heath MACE Attending Clinician Unavailable Xuan MASSEY S Attending Clinician Christen GOMEZ Attending Clinician Unavailable Doctor Unassigned, Name Attending Clinician Unavailable Kehinde Dasilva MD Attending Clinician Opal STARK Attending Clinician OPAL Attending Clinician Unavailable KEHINDE DASILVA Attending Clinician Unavailable Pc, Echo Room 1 - Attending Clinician Unavailable Sugey SIMONS Attending Clinician Unavailable Sugey Foley Attending Clinician Unknown Attending Clinician Unavailable ARNOLD Attending Clinician Unavailable Heath MACE Admitting Clinician Unavailable Sugey SIMONS Admitting Clinician Unavailable Payers Payer Name Policy Type Policy Number Effective Date Expiration Date S ource [employer] [id number] 2020 HMO 00:00:00 [facility] [id number] 2020 CHOICE EXCHANGE 00:00:00 Problems Condition Condition Condition Status Onset Resolution Last Treating Co mments Source Name Details Category Date Date Treatment Clinician Date Hypoglycem Hypoglycem Disease Active 2014-05 U irvin fernandez ia 06-20 ity of 00:00: [place] 00 [facility] Branch Depression Depression Disease Active 2014-05 U nivers 0-28 ity of 00:00: [place] 00 Medical Branch Allergies, Adverse Reactions, Alerts Allergy Allergy Status Severity Reaction(s) Onset Inactive Treating Comm ents Source Name Type Date Date Clinician MEPERIDI Allergy Active Low Itching [facility] OPIOIDS Allergy Active Low Itching [facility] - MORPHINE 00:00: Medical ANALOGUE 00 Center S MORPHINE DRUG Active ITCHING 2014-05 Univers INGREDI 0-28 ity of 00:00: [place] 00 [facility] Branch Morphine Propensi Active Itching 2014-05 Unive rs ty to 0-28 ity of adverse 00:00: [place] reaction 00 Medical s Branch MORPHINE Allergy Active Itching 2014-[address] [facility] [address] [facility] Social History Social Habit Start Date Stop Date Quantity Comments Source Exposure to Not sure [place] of SARS-CoV-2 (event) [facility] Cigarettes smoked 2020-10-20 2020-10-20 Univers ity of current (pack per 00:00:00 00:00:00 [facility] ) - Reported Branch Tobacco use and 2020-10-20 2020-10-20 Never used Universit y of exposure 00:00:00 00:00:00 [facility] Cigarette 2020-10-20 2020-10-20 University of pack-years 00:00:00 00:00:00 [facility] Alcohol intake 2020-10-20 2020-10-20 Current drinker Unive rsity of 00:00:00 00:00:00 of alcohol [facility] (finding) Nancy Alcohol Comment 2018-02-15 2018-02-15 Occasional Universit y of 00:00:00 00:00:00 Drinker [facility] History of tobacco 2015-03-04 Cigarette Smoker University of use 00:00:00 [facility] Sex Ass[birth year] At [birth year] Universit y of 00:00:00 00:00:00 [facility] Smoking Status Start Date Stop Date Source Former smoker 2020-10-20 00:00:00 2020-10-20 00:00:00 Universi ty of [facility] Medications Ordered Filled Start Stop Current Ordering Indication Dosage Frequency Signature Comments Components Source Medication Medication Date Date Medication? Clinician (SIG) Name Name cyclobenzap 0 Yes 10mg Take 10 mg Univers rine 10 mg 6-01 by mouth 2 ity of tablet 15:18: (two) [place] 02 times Medical daily as Branch needed for Muscle Spasms. cyclobenzap 2020-0 Yes 10mg Take 10 mg Univers rine 10 mg 6-01 by mouth 2 ity of tablet 15:18: (two) [place] 02 times Medical daily as Branch needed for Muscle Spasms. meloxicam 2020-0 Yes [id number] 7.5mg Take 1 U nivers 7.5 mg 6-01 tablet by ity of tablet 00:00: mouth [place] 00 daily. Medical Branch meloxicam 2020-0 Yes [id number] 7.5mg Take 1 U nivers 7.5 mg 6-01 tablet by ity of tablet 00:00: mouth [place] 00 daily. Medical Branch cyclobenzap 2020-0 Yes 10mg Take 10 mg Univers rine 10 mg 7-30 by mouth 2 ity of tablet 14:20: (two) [place] 00 times Medical daily as Branch needed for Muscle Spasms. calcium 2020-0 Yes Take by Univer s carbonate/v 7-30 mouth ity of itamin D3 14:20: daily. [place] (VITAMIN 00 Medical D-3 ORAL) Branch cyclobenzap 2020-0 Yes 10mg Take 10 mg Univers rine 10 mg 7-30 by mouth 2 ity of tablet 14:20: (two) [place] 00 times Medical daily as Branch needed for Muscle Spasms. calcium 2020-0 Yes Take by Univer s carbonate/v 7-30 mouth ity of itamin D3 14:20: daily. [place] (VITAMIN 00 Medical D-3 ORAL) Branch cyclobenzap 2020-0 Yes 10mg Take 10 mg Univers rine 10 mg 7-30 by mouth 2 ity of tablet 14:20: (two) [place] 00 times Medical daily as Branch needed for Muscle Spasms. calcium 2020-0 Yes Take by Univer s carbonate/v 7-30 mouth ity of itamin D3 14:20: daily. [place] (VITAMIN 00 Medical D-3 ORAL) Branch cyclobenzap 2020-0 Yes 10mg Take 10 mg Univers rine 10 mg 7-30 by mouth 2 ity of tablet 14:20: (two) [place] 00 times Medical daily as Branch needed for Muscle Spasms. calcium 2020-0 Yes Take by Univer s carbonate/v 7-30 mouth ity of itamin D3 14:20: daily. [place] (VITAMIN 00 Medical D-3 ORAL) Branch cyclobenzap 2020-0 Yes 10mg Take 10 mg Univers rine 10 mg 7-30 by mouth 2 ity of tablet 14:20: (two) [place] 00 times Medical daily as Branch needed for Muscle Spasms. calcium 2020-0 Yes Take by Univer s carbonate/v 7-30 mouth ity of itamin D3 14:20: daily. [place] (VITAMIN 00 Medical D-3 ORAL) Branch cyclobenzap 2020-0 Yes 10mg Take 10 mg Univers rine 10 mg 7-30 by mouth 2 ity of tablet 14:20: (two) [place] 00 times Medical daily as Branch needed for Muscle Spasms. calcium 2020-0 Yes Take by Univer s carbonate/v 7-30 mouth ity of itamin D3 14:20: daily. [place] (VITAMIN 00 Medical D-3 ORAL) Branch cyclobenzap 2020-0 Yes 10mg Take 10 mg Univers rine 10 mg 7-30 by mouth 2 ity of tablet 14:20: (two) [place] 00 times Medical daily as Branch needed for Muscle Spasms. calcium 2020-0 Yes Take by Univer s carbonate/v 7-30 mouth ity of itamin D3 14:20: daily. [place] (VITAMIN 00 Medical D-3 ORAL) Branch cyclobenzap 2020-0 Yes 10mg Take 10 mg Univers rine 10 mg 7-30 by mouth 2 ity of tablet 14:20: (two) [place] 00 times Medical daily as Branch needed for Muscle Spasms. calcium 2020-0 Yes Take by Univer s carbonate/v 7-30 mouth ity of itamin D3 14:20: daily. [place] (VITAMIN 00 Medical D-3 ORAL) Branch calcium 2020-0 Yes Take by Univer s carbonate/v 7-30 mouth ity of itamin D3 14:20: daily. [place] (VITAMIN 00 Medical D-3 ORAL) Branch calcium 2020-0 Yes Take by Univer s carbonate/v 7-30 mouth ity of itamin D3 14:20: daily. [place] (VITAMIN 00 Medical D-3 ORAL) Branch Ketoprofen 2020-0 2020- No Take by Un cindy 25 mg Cap 7-30 07-30 mouth as ity o f 14:20: 00:00 needed. [place] 00 :00 Medical Branch Ketoprofen 0 2020- No Take by Un cindy 25 mg Cap 12-18-30 mouth as ity o f 14:20: 00:00 needed. [place] 00 :00 Medical Branch cetirizine 2019-0 2020- No Take by Un cindy HCl (ZYRTEC 12-18-30 mouth ity of ORAL) 14:19: 00:00 daily. [place] 51 :00 Medical Branch cetirizine 2019-0 2020- No Take by Un cindy HCl (ZYRTEC 12-18-30 mouth ity of ORAL) 14:19: 00:00 daily. [place] 51 :00 Medical Branch omeprazole 2020- No 40mg Take 40 mg Univers 40 mg 12-1830 by mouth ity of capsule 14:19: 00:00 daily. [place] 45 :00 Medical Branch omeprazole 2019- 2020- No 40mg Take 40 mg Univers 40 mg 12-18 by mouth ity of capsule 14:19: 00:00 daily. [place] 45 :00 Medical Branch magnesium 2020- No 400mg Take 400 Un cindy oxide 12-18-30 mg by ity of (MAGOX) 400 14:19: 00:00 [place] mg (241.3 39 :00 daily. Medical mg Branch magnesium) tablet magnesium 2019- No 400mg Take 400 Un cindy oxide 12-18 07-30 mg by ity of (MAGOX) 400 14:19: 00:00 [place] mg (241.3 39 :00 daily. Medical mg Branch magnesium) tablet foLIC acid 2019- No 1mg Take 1 mg U nivers 1 mg tablet 12-18 by mouth ity of 14:19: 00:00 daily. [place] 36 :00 Medical Branch foLIC acid 2019-2019- No 1mg Take 1 mg U nivers 1 mg tablet 12-1830 by mouth ity of 14:19: 00:00 daily. [place] 36 :00 Medical Branch Diclofenac 2019-2019- No 1g Apply 1 g U nivers Sodium 1 % 12-18 to area(s) it y of gel 14:19: 00:00 4 (four) [place] 33 :00 times Medical daily. Branch Diclofenac 2019- No 1g Apply 1 g U nivers Sodium 1 % 30 07-30 to area(s) it y of gel 14:19: 00:00 4 (four) [place] 33 :00 times Medical daily. Branch aspirin 81 2020-0 2020- No 81mg Take 81 mg Univers mg chewable -30 -30 by mouth ity of tablet 14:19: 00:00 daily. [place] 11 :00 Medical Branch aspirin 81 2020-0 2020- No 81mg Take 81 mg Univers mg chewable 12-18-30 by mouth ity of tablet 14:19: 00:00 daily. [place] 11 :00 Medical Branch cetirizine 2020-0 Yes Take by Uni vers HCl (ZYRTEC 7-28 mouth ity of ORAL) 18:48: daily. [address] Branch aspirin 81 2020-0 Yes 81mg Take 81 mg U nivers mg chewable 7-28 by mouth ity of tablet 18:48: daily. [place] [address] Medical Branch magnesium 2020-0 Yes 400mg Take 400 Uni vers oxide 7-28 mg by ity of (MAGOX) 400 18:48: mouth [place] mg (241.3 48 daily. Medical mg Branch magnesium) tablet Diclofenac 2020-0 Yes 1g Apply 1 g Un cindy Sodium 1 % 7-28 to area(s) ity of gel 18:48: 4 (four) [place] 48 times Medical daily. Branch omeprazole 2020-0 Yes 40mg Take 40 mg U nivers 40 mg 7-28 by mouth ity of capsule 18:48: daily. [address] Branch cetirizine 2020-0 Yes Take by Uni vers HCl (ZYRTEC 7-28 mouth ity of ORAL) 18:48: daily. [address] Branch aspirin 81 2020-0 Yes 81mg Take 81 mg U nivers mg chewable 7-28 by mouth ity of tablet 18:48: daily. [place] [address] Medical Branch magnesium 2020-0 Yes 400mg Take 400 Uni vers oxide 7-28 mg by ity of (MAGOX) 400 18:48: mouth [place] mg (241.3 48 daily. Medical mg Branch magnesium) tablet Diclofenac 2020-0 Yes 1g Apply 1 g Un cindy Sodium 1 % 7-28 to area(s) ity of gel 18:48: 4 (four) [place] 48 times Medical daily. Branch omeprazole 2020-0 Yes 40mg Take 40 mg U nivers 40 mg 7-28 by mouth ity of capsule 18:48: daily. [place] [address] Medical Branch cetirizine 2020-0 Yes Take by Uni vers HCl (ZYRTEC 7-28 mouth ity of ORAL) 18:48: daily. [place] [address] Medical Branch aspirin 81 2020-0 Yes 81mg Take 81 mg U nivers mg chewable 7-28 by mouth ity of tablet 18:48: daily. [place] [address] Medical Branch magnesium 2020-0 Yes 400mg Take 400 Uni vers oxide 7-28 mg by ity of (MAGOX) 400 18:48: mouth [place] mg (241.3 48 daily. Medical mg Branch magnesium) tablet Diclofenac 2020-0 Yes 1g Apply 1 g Un cindy Sodium 1 % 7- to area(s) ity of gel 18:48: 4 (four) [place] [address] times Medical daily. Branch omeprazole 2020-0 Yes 40mg Take 40 mg U nivers 40 mg 7-28 by mouth ity of capsule 18:48: daily. [place] [address] Medical Branch Ketoprofen 2020-0 Yes Take by Uni vers 25 mg Cap 7-28 mouth as ity of 18:48: needed. [place] [address] Medical Branch cyclobenzap 2020-0 Yes 10mg Take 10 mg Univers rine 10 mg 7-28 by mouth 2 ity of tablet 18:48: (two) [place] [address] times Medical daily as Branch needed for Muscle Spasms. foLIC acid 2020-0 Yes 1mg Take 1 mg Un cindy 1 mg tablet 7-28 by mouth ity of 18:48: daily. [place] [address] Medical Branch calcium 2020-0 Yes Take by Univer s carbonate/v 7-28 mouth ity of itamin D3 18:48: daily. [place] ([place] [address] Medical D-3 ORAL) Branch Ketoprofen 2020-0 Yes Take by Uni vers 25 mg Cap 7-28 mouth as ity of 18:48: needed. [place] [address] Medical Branch cyclobenzap 2020-0 Yes 10mg Take 10 mg Univers rine 10 mg 7-28 by mouth 2 ity of tablet 18:48: (two) [place] [address] times Medical daily as Branch needed for Muscle Spasms. foLIC acid 2020-0 Yes 1mg Take 1 mg Un cindy 1 mg tablet 7-28 by mouth ity of 18:48: daily. [place] [address] Medical Branch calcium 2020-0 Yes Take by Univer s carbonate/v 7-28 mouth ity of itamin D3 18:48: daily. [place] (VITAMIN 47 Medical D-3 ORAL) Branch Ketoprofen 2019-0 Yes Take by Uni vers 25 mg Cap 7-28 mouth as ity of 18:48: needed. [address] Branch cyclobenzap 2020-0 Yes 10mg Take 10 mg Univers rine 10 mg 7-28 by mouth 2 ity of tablet 18:48: (two) [place] [address] times Medical daily as Branch needed for Muscle Spasms. foLIC acid 2019-0 Yes 1mg Take 1 mg Un cindy 1 mg tablet 7-28 by mouth ity of 18:48: daily. [address] calcium 2020-0 Yes Take by Univer s carbonate/v 7-28 mouth ity of itamin D3 18:48: daily. [place] (VITAMIN 47 Medical D-3 ORAL) Branch ibuprofen 0 2020- No 400mg Take 400 Un cindy 200 mg 7-28 07-28 mg by ity of tablet 18:45: 00:00 mouth [place] 35 :00 every 6 Medical (six) Branch hours as needed (pain back). ibuprofen 2019-0 2020- No 400mg Take 400 Un cindy 200 mg 7-28 07-28 mg by ity of tablet 18:45: 00:00 mouth [place] 35 :00 every 6 Medical (six) Branch hours as needed (pain back). ibuprofen 2019-0 2020- No 400mg Take 400 Un cindy 200 mg 7-28 07-28 mg by ity of tablet 18:45: 00:00 mouth [place] 35 :00 every 6 Medical (six) Branch hours as needed (pain back). aspirin 81 2018-0 Yes ENERGY ECONOMIST 1 T PO U nivers mg chewable 2-22 D ity of tablet 00:00: [place] [address] Medical Branch foLIC acid 2019-0 Yes TK 1 T PO Un cindy 1 mg tablet 2-22 D ity of 00:00: [place] [address] Medical Branch aspirin 81 2019-0 Yes ENERGY ECONOMIST 1 T PO U nivers mg chewable 2-22 D ity of tablet 00:00: [place] [address] Medical Branch foLIC acid 2019-0 Yes TK 1 T PO Un cindy 1 mg tablet 2-22 D ity of 00:00: [place] [address] Medical Branch aspirin 81 2019-0 Yes ENERGY ECONOMIST 1 T PO U nivers mg chewable 2-22 D ity of tablet 00:00: [place] [address] Medical Branch foLIC acid 2018-0 Yes TK 1 T PO Un cindy 1 mg tablet - D ity of 00:00: [place] 00 Medical Branch aspirin 81 2018-0 2020- No ENERGY ECONOMIST 1 T PO Univers mg chewable 07-13 D ity of tablet 00:00: 00:00 [place] 00 :00 Medical Branch foLIC acid 2018-0 2020- No TK 1 T PO U nivers 1 mg tablet 07-13- D ity of 00:00: 00:00 [place] 00 :00 Medical Branch aspirin 81 2018-0 2020- No ENERGY ECONOMIST 1 T PO Univers mg chewable 07-13- D ity of tablet 00:00: 00:00 [place] 00 :00 Medical Branch foLIC acid 2018-0 2020- No TK 1 T PO U nivers 1 mg tablet 07-13- D ity of 00:00: 00:00 [place] 00 :00 Medical Branch aspirin 81 2018-0 2020- No ENERGY ECONOMIST 1 T PO Univers mg chewable 07-13 D ity of tablet 00:00: 00:00 [place] 00 :00 Medical Branch foLIC acid 2018-0 2020- No TK 1 T PO U nivers 1 mg tablet 07-13 D ity of 00:00: 00:00 [place] 00 :00 Medical Branch ibuprofen 2017-05 Yes 400mg Take 400 Uni vers 200 mg 0-15 mg by ity of tablet 16:20: mouth [place] 33 every 6 Medical (six) Branch hours as needed (pain back). ibuprofen 2017-05 Yes 400mg Take 400 Uni vers 200 mg 0-15 mg by ity of tablet 16:20: mouth [place] 33 every 6 Medical (six) Branch hours as needed (pain back). ibuprofen 2017-05 Yes 400mg Take 400 Uni vers 200 mg 0-15 mg by ity of tablet 16:20: mouth [place] 33 every 6 Medical (six) Branch hours as needed (pain back). Vital Signs Vital Name Observation Time Observation Value Comments Source HEIGHT 2021-03-02 16:11:00 170.2 cm WEIGHT 2021-03-02 16:11:00 70.308 kg Systolic blood 2020-10-20 15:14:00 111 mm[Hg] Univer sity of pressure [facility] Diastolic blood 2020-10-20 15:14:00 74 mm[Hg] Unive rsity of pressure [place] [facility] Nancy Heart rate 2020-10-20 15:14:00 71 /min Universi ty of [place] [facility] Respiratory rate 2020-10-20 15:14:00 18 /min Univ ersity of [facility] Body height 2020-10-20 15:14:00 167.6 cm Universi ty of [place] [facility] Nancy Body weight 2020-10-20 15:14:00 72.576 kg Universi ty of [place] [facility] BMI 2020-10-20 15:14:00 25.82 kg/m2 Universi ty of [facility] Branch Systolic blood 2020-10-20 15:14:00 111 mm[Hg] Univer sity of pressure [facility] Branch Diastolic blood 2020-10-20 15:14:00 74 mm[Hg] Unive rsity of pressure [facility] Heart rate 2020-10-20 15:14:00 71 /min Universi ty of [facility] Respiratory rate 2020-10-20 15:14:00 18 /min Univ ersity of [facility] Body height 2020-10-20 15:14:00 167.6 cm Universi ty of [place] [facility] Nancy Body weight 2020-10-20 15:14:00 72.576 kg Universi ty of [place] [facility] BMI 2020-10-20 15:14:00 25.82 kg/m2 Universi ty of [place] [facility] Systolic blood 2019-12-17 18:44:00 108 mm[Hg] Univer sity of pressure [place] [facility] Diastolic blood 2019-12-17 18:44:00 80 mm[Hg] Unive rsity of pressure [facility] Heart rate 2019-12-17 18:44:00 75 /min Universi ty of [place] [facility] Respiratory rate 2019-12-17 18:44:00 19 /min Univ ersity of [facility] Body height 2019-12-17 18:44:00 167.6 cm Universi ty of [place] [facility] Body weight 2019-12-17 18:44:00 78.608 kg [facility] ty [facility] [place] [facility] BMI 2019-12-17 18:44:00 27.97 kg/m2 Universi ty of [facility] Oxygen saturation in 2019-12-17 18:44:00 97 /min [facility] Arterial blood by [facility] Pulse oximetry Branch Body height 2019-12-19 13:13:00 167.6 cm Universi ty of [place] [facility] Body weight 2019-12-19 13:13:00 77.111 kg Universi ty of [place] [facility] BMI 2019-12-19 13:13:00 27.44 kg/m2 [facility]i ty of [place] [facility] Systolic blood 2019-12-19 13:13:00 107 mm[Hg] Univer sity of pressure [place] [facility] Diastolic blood 2019-12-19 13:13:00 72 mm[Hg] Unive rsity of pressure [place] [facility] Heart rate 2019-12-19 13:13:00 78 /min [facility]i ty of [place] [facility] Systolic blood 2019-11-11 15:03:00 124 mm[Hg] Univer sity of pressure [place] [facility] Diastolic blood 2019-11-11 15:03:00 84 mm[Hg] Unive rsity of pressure [place] [facility] Heart rate 2019-11-11 15:03:00 61 /min [facility]i ty of [place] [facility] Nancy Body temperature 2019-11-11 15:03:00 36.78 Lesly Univ ersity of [facility] Branch Respiratory rate 2019-11-11 15:03:00 18 /min Univ ersity of [facility] Branch Body height 2019-11-11 15:03:00 167.6 cm [facility]i ty of [place] [facility] Body weight 2019-11-11 15:03:00 79.652 kg [facility]i ty of [place] [facility] BMI 2019-11-11 15:03:00 28.34 kg/m2 Universi ty of [facility] Branch Oxygen saturation in 2019-11-11 15:03:00 97 /min [facility] Arterial blood by [facility] Pulse oximetry Branch Procedures Procedure Date / Time Performing Clinician Source Performed EXTERNAL PROVIDER RECORDS 2020-07-28 06:01:00 Doctor Unassigned, [facility] [place] [facility] Nancy CARDIOLOGY EVENT MONITOR 2020-01-01 05:01:00 Doctor Unassigned, [facility] [place] [facility] Branch EXTERNAL PROVIDER RECORDS 2019-12-23 05:01:00 Doctor Unassigned, [facility] [place] [facility] INSURANCE CORRESPONDENCE 2019-12-17 05:01:00 Doctor Unassigned, [facility] [place] [facility] Nancy XR ANKLE 3+ VW LEFT 2019-11-11 15:38:35 Lizandro Simons Universi ty of [facility] XR FOOT 3+ VW LEFT 2019-11-11 15:38:35 Lizandro Simons [facility] Encounters Start End Encounter Admission Attending Care Care Encounter Source Date/Time Date/Time Type Type Clinicians Facility Department ID 2020-07-09 Inpatient PRATIK Andrade [id number] [facility] 09:00:00 Deedee [id number] [facility] 2021-04-29 2021-04-29 Outpatient [facility] [id number] [facility] 08:36:11 09:35:44 [facility] 2021-03-16 2021-03-16 Outpatient [facility] [id number] [facility] 10:13:33 11:16:10 [facility] 2021-03-04 2021-03-04 Outpatient [facility] [id number] [facility] 09:56:25 11:06:24 [facility] 2021-03-03 2021-03-03 [facility] [id number] [facility] 10:12:00 23:59:00 [facility] e 2021-03-03 2021-03-03 Outpatient [facility] Surgery [id number] SLE 10:12:00 13:50:00 LACEY 2021-03-02 2021-03-02 Outpatient [facility] [id number] SLE 16:15:10 23:59:00 2021-02-23 2021-02-23 Outpatient [facility] [id number] [facility] 09:48:55 12:42:31 [facility] 2020-10-20 2020-10-20 Office Xuan [place] 1.2.840.114 [id number] 10:04:10 10:19:10 Visit [facility] [id number] Surgical [id number] Specialti [id number] [place] 2020-10-20 2020-10-20 Office Xuan [place] 1.2.840.114 [id number] [facility] 10:04:10 10:19:10 Visit [facility] [id number] it y of Surgical [id number] Maikel as Specialti [phone] Ok dical es 198 [facility] 2020-10-20 2020-10-20 Outpatient Kevin GOMEZ [facility] [id number] Univers 10:00:00 10:00:00 MICHAEL ity [facility] 2020-10-20 2020-10-20 Outpatient Kevin GOMEZ [facility] [id number] Univers 10:00:00 10:00:00 MICHAEL [id number] ity [facility] 2020-07-28 2020-07-28 Orders Doctor KAVITHA 1.2.840.114 [id number] Univers 00:00:00 00:00:00 Only Unassigned, PHILLIP [id number] ity of [place] [facility] [id number] Maikel as [id number] [address] 2020-07-14 2020-07-14 [facility] 1.2.840.114 [id number] Univers 00:00:00 00:00:00 [facility] [id number] it y of [place] Marie [id number] Maikel as Professio [phone] Ok dical nal 044 Nancy Office [address] 2019-12-17 2020-01-20 [facility] 1.2.840.114 [id number] Univers 13:29:55 22:46:14 Visit Gustavoelise [place] [id number] ity [place] [id number] [place] Profess[place] [phone] Ok dical nal 059 [facility] 2020-01-01 2020-01-01 Orders Doctor KAVITHA 1.2.840.114 [id number] Univers 00:00:00 00:00:00 Only Unassigned, PHILLIP [id number] ity of [place] [facility] [id number] Maikel as [phone] [address] 2019-12-31 2019-12-31 [facility] [id number] Univers 15:40:00 15:40:00 XU [id number] ity o f [facility] 2019-12-31 2019-12-31 Outpatient R OPAL, [facility] [id number] Univers 15:40:00 15:40:00 VERORUBI ity o f [facility] 2019-12-23 2019-12-23 Orders Doctor KAVITHA 1.2.840.114 [id number] Univers 00:00:00 00:00:00 Only Unassigned, PHILLIP [id number] ity of [place] [facility] [id number] Maikel as [phone] [address] 2019-12-20 2019-12-[address] [facility] 1.2.840.114 [id number] Univers 00:00:00 00:00:00 Secure Msg Xu Marie [id number] ity of [id number] Profess[place] [phone] Ok dical nal 059 [facility] 2019-12-19 2019-12-19 Outpatient R [facility] [id number] Univers 10:00:00 10:00:00 ity of [facility] 2019-12-19 2019-12-19 [facility] [id number] Univers 09:30:00 09:30:00 DANILO [id number] ity of [facility] 2019-12-19 2019-12-19 Laboratory Pc, Adc Echo Room 1 - [facility] 1 .2.840.114 [id number] Univers 08:00:45 09:00:45 Only Danilo Dasilva 350.1.1 3.10 ity [id number] [phone] Ok dical nal 059 [facility] 2019-12-19 2019-12-19 Telemedici Vidya [facility] 1.2.840.114 [id number] Univers 07:49:27 08:04:27 ne Visit Danilo Marie [id number] ity of [place] [id number] [place] [phone] Ok dical nal 044 [facility] 2019-12-17 2019-12-17 Outpatient OPAL, [facility] [id number] Univers 13:40:00 13:40:00 XU [id number] ity o f [facility] 2019-12-17 2019-12-17 Outpatient R OPAL [facility] [id number] Univers 13:40:00 13:40:00 XU ity o f [facility] 2019-12-17 2019-12-17 Orders Doctor KAVITHA 1.2.840.114 [id number] Univers 00:00:00 00:00:00 Only Unassigned, PHILLIP [id number] ity of [place] [facility] [id number] Maikel as [phone] [address] 2019-11-11 2019-11-11 Outpatient R LIZANDRO SIMONS [facility] [id number] Univers 10:28:15 23:59:00 ity of [facility] 2019-11-11 2019-11-11 [facility] Lizandro Simons [facility] [id number] Univers 10:15:00 23:59:00 Encounter Y SPECIALTY [id number] [id number] [phone] Ok dical VICTORSugey [address] [facility] 2019-11-11 2019-11-11 Urgent Lizandro Simons [facility] [id number] Univers 09:46:05 13:30:50 Care Unknown, Attending SPECIALTY [id number] [id number] [phone] Ok dicrosario ODONNELLY [address] [facility] 2019-11-11 2019-11-11 Outpatient R [facility] [id number] Univers 10:00:00 10:00:00 [id number] ity of [facility] 2019-11-10 2019-11-10 Outpatient R [facility] [id number] Univers 16:40:00 16:40:00 [id number] ity [facility] 2019-11-10 2019-11-10 [facility] [id number] Univers 16:40:00 16:40:00 GUME ity [facility] 2019-08-15 2019-08-15 [facility] [id number] Univers 00:00:00 00:00:00 [facility] [id number] it y of [place] Marie [id number] Maikel as Ghazala [phone] Ok dical nal [address] One Results Test Description Test Time Test Comments Results Result [facility] e Comments XR FOOT 3+ VW 2019-11-11 No acute bony Univers ity of LEFT 19:03:12 abnormality is [place] [facility] present. EXAM: XR Branch ANKLE 3+ VW LEFT, EXAM: XR FOOT 3+ VW LEFT HISTORY: left foot injury COMPARISON: None FINDINGS: Imaging of the left ankle and left foot demonstrates an os peroneum. Noacute fractures are seen. No erosions or subluxations are identified. [facility], [facility]iant Results Inft User - 11/11/2019 2:04 PM CDTEXAM:XR ANKLE 3+ VW LEFT,EXAM:XR FOOT 3+ VW LEFTHISTORY:left foot injury COMPARISON:NoneFI

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
[2021-08-17] MEDS ORDERED: IBUPROFEN 400 MG TAB ONE (21:46)
[2021-08-17 22:50] VITALS: TEMP 98.5; O2SAT 100
[2021-08-17 22:51] VITALS: BP 136/88
== END 2021-08-17 21:48 | disposition home or self-care (01) ==
LOC: ER 19:10
DX: S13.4XXA Sprain of ligaments of cervical spine, initial encounter (principal); G89.11 Acute pain due to trauma; V59.40XA Driver of pick-up truck or van injured in collision with unspecified motor vehicles in traffic accident, initial encounter; F41.8 Other specified anxiety disorders; Z88.5 Allergy status to narcotic agent
CPT/HCPCS: 72040; 99284

== ENCOUNTER 2022-08-10 07:30 | Day surgery (SDC) | payer OTHER, SELFPAY ==
[2022-08-05 11:20] LABS: Absolute Lymphocytes (CBC) 1.7 K/uL (0.7-4.9); Hematocrit 45.5 % (36.0-45.0); Lymphocytes % 29.7 % (15.3-44.8); MCV 87.6 fL (80-100); RBC Red Blood Cell Count 5.19 M/uL (3.86-4.86)
[2022-08-05 11:24] LABS: Protime INR 1.03
[2022-08-05 11:33] LABS: Potassium 3.7 mEq/L (3.5-5.1)
--- NOTE | 2022-08-05 12:43 | RAD REPORT ---
EXAM DESCRIPTION: RAD - Chest Pa And Lat (2 Views) - 08/05/2022 11:36 am CLINICAL HISTORY: pre op for surgery Chest pain. COMPARISON: Chest Pa And Lat (2 Views) dated 07/26/2021; Chest Single View dated 12/14/2019; Chest Sing le View dated 07/12/2018; CHEST PA AND LAT 2 VIEW dated 11/23/2013 FINDINGS: Benign calcified granuloma, unchanged right lung base. The lungs are otherwise clear. The heart is normal in size. No displaced fractures. Moderate levoscoliosis upper thoracic spine. IMPRESSION: No acute or concerning finding suspected.
--- NOTE | 2022-08-08 17:43 | EKG ---
Test Date: 2022-08-05 Test Time: 10:53:15 Qualitative Executive Researcher: ROLAN MEASUREMENT RESULTS: Intervals: Rate: 62 OR: 142 QRSD: 78 QT: 400 QTc: 406 Evans: P: 72 OR: 142 QRS: 49 T: 55 INTERPRETIVE STATEMENTS: Normal sinus rhythm Normal ECG No previous ECG available for comparison Electronically Signed On 08-08-22 17:37:24 CDT by Yuri Henderson
[2022-08-10] MEDS ORDERED: Ringers Lactate 1,000 ML IV ONE ×2 (07:58→12:02)
[2022-08-10] MEDS ORDERED: CEFAZOLIN SODIUM 1 GM/VIAL ONE (07:58)
[2022-08-10] MEDS ORDERED: LIDOCAINE 1% MPF 5 ML VIAL ONE (08:53)
[2022-08-10] MEDS ORDERED: FENTANYL CITR 100 MCG/2 ML ONE (08:54)
[2022-08-10] MEDS ORDERED: EPINEPHRINE/PF 1 MG/ML AMP ONE ×2 (08:54→10:00)
[2022-08-10] MEDS ORDERED: MIDAZOLAM HCL 2 MG/2 ML INJ ONE (08:54)
[2022-08-10] MEDS ORDERED: dexAMETHasone 10 MG/ML VIAL ONE ×2 (08:54→10:19)
[2022-08-10] MEDS ORDERED: KETOROLAC 30 MG/ML INJ ONE (10:19)
[2022-08-10] MEDS ORDERED: propofoL 200 MG/20 ML VIAL IV ONE (10:19)
[2022-08-10] MEDS ORDERED: LIDOCAINE 2% MPF 5 ML VIAL ONE (10:19)
[2022-08-10] MEDS ORDERED: ONDANSETRON 4 MG/2 ML VIAL ONE (10:19)
[2022-08-10] MEDS ORDERED: ROCURONIUM 50 MG/5 ML VIAL IV ONE (10:19)
[2022-08-10] MEDS ORDERED: NS 0.9% VIAL 10 ML ONE ×3 (10:59→12:10)
[2022-08-10] MEDS ORDERED: Phenylephrine HCl 10 MG/ML 1 ML VIAL ONE (11:00)
[2022-08-10] MEDS ORDERED: GLYCOPYRROLATE 0.2 MG/ML SYR ONE (12:26)
[2022-08-10] MEDS ORDERED: NEOSTIGMINE 1 MG/ML -10 ML VIAL ONE (12:27)
--- NOTE | 2022-08-10 12:36 | P.BOP ---
Preoperative diagnosis: right shoulder recurrent rotator cuff tear Postoperative diagnosis: same, right shoulder impingement syndrome Primary procedure: right shoulder arthroscopic rotator cuff repair Secondary procedure: right shoulder arthroscopic subacromial decompression Face Painter: NONE,NONE Estimated blood loss: 5 cc Specimen: none Findings: see dictation Anesthesia: General Complications: None Implants: 1 - 5.5 mm arthrex corkscrew, 2 - 4.75 mm arthrex swivelock Fluids & blood products: per anesthesia record Transferred to: Recovery Room Condition: Good
[2022-08-10 13:51] VITALS: BP 109/67; TEMP 97.1; O2SAT 97
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
== END 2022-08-10 14:00 | disposition home or self-care (01) ==
LOC: OR 07:30
PROVIDERS: ATTEND Orthopaedic Surgery Sports Medicine
PROC: 0RNJ4ZZ Release Right Shoulder Joint, Percutaneous Endoscopic Approach (ICD-10-PCS; principal; 2022-08-10 09:45)
DX: M75.121 Complete rotator cuff tear or rupture of right shoulder, not specified as traumatic (principal); M75.41 Impingement syndrome of right shoulder; M75.21 Bicipital tendinitis, right shoulder
CPT/HCPCS: 93005; 85025; 80048; 36415; 85610; 85730; 71046; 73020; 29827; 29826; A4216 ×3; J2704; J2710; J0171 ×2; J2001 ×2; J2370; J2250; J3010; J1100 ×2; J2405; J7120 ×2; J0690